=== PATIENT | female | born 1975 | race Caucasian/White ===

== ENCOUNTER 2017-01-17 14:31 | Emergency (ER) | payer MEDICARE ==
[~2017-01-17 14:31] MED LIST: XANAX1 MG PO
[2017-01-17 15:04] LABS: BASOPHILS 0.5 % (0.0-2.0); EOSINOPHILS 1.1 % (0-7); HEMATOCRIT 38.8 % (36.0-48.0); HEMOGLOBIN 12.9 g/dL (12-16); IMMATURE GRANULOCYTES 0.2 % (0-5); LYMPHOCYTES 37.6 % (15-50); MCH 31.9 pg (26.0-34.0); MCHC 33.2 g/dL (31.0-37.0); MONOCYTES 6.6 % (2-11); PLATELET COUNT 198 10x3/uL (130-400); RBC 4.04 10x6/uL (4.00-5.40); RDW 14.9 % (11.5-14.5); WBC 6.7 10x3/uL (4.8-10.8)
[2017-01-17 15:18] LABS: ALBUMIN 3.9 g/dL (3.4-5.0); ALKALINE PHOSPHATASE 124 U/L (46-116); ALT (SGPT) 18 U/L (10-68); AMYLASE - SERUM 39 U/L (25-115); CALC OSMOLALITY 280 mosm/kg (275-300); CALCIUM 9.2 mg/dL (8.5-10.1); CARBON DIOXIDE 24.3 mmol/L (21.0-32.0); CHLORIDE - SERUM 104 mmol/L (98-107); CREATININE - SERUM 0.8 mg/dL (0.6-1.3); GLUCOSE 90 mg/dL (74-106); LIPASE 120 U/L (73-393); POTASSIUM - SERUM 3.8 mmol/L (3.5-5.1); PROTEIN - SERUM 7.5 g/dL (6.4-8.2); SODIUM 140 mmol/L (136-145); UREA NITROGEN 17 mg/dL (7-18); eGFR NON AFRICAN AMERICAN 83 mL/min (90-120)
[2017-01-17 16:09] LABS: APPEARANCE HAZY (CLEAR); BILIRUBIN NEGATIVE (NEGATIVE); COLOR YELLOW (YELLOW); GLUCOSE NEGATIVE (NEGATIVE); KETONE NEGATIVE (NEGATIVE); LEUKOCYTE ESTERASE TRACE (NEGATIVE); NITRITE NEGATIVE (NEGATIVE); PROTEIN NEGATIVE (NEGATIVE); UROBILINOGEN NORMAL (NORMAL)
[2017-01-17 16:10] LABS: BACTERIA FEW /hpf (NONE SEEN); EPITHELIAL CELLS 0-5 /hpf (0-5); MUCUS <1+ /lpf (NONE SEEN); RED CELLS - URINE 0-5 /hpf (0-5); WHITE CELLS - URINE 0-5 /hpf (0-5)
[2017-01-17 16:14] LABS: HCG URINE NEGATIVE (NEGATIVE)
== END 2017-01-17 17:11 | disposition home or self-care (01) ==
LOC: D.ER 14:31
PROVIDERS: Emergency Medicine
DX: G89.29 Other chronic pain (principal); S90.02XA Contusion of left ankle, initial encounter; W19.XXXA Unspecified fall, initial encounter; Y93.89 Activity, other specified; Y92.018 Other place in single-family (private) house as the place of occurrence of the external cause; F31.9 Bipolar disorder, unspecified; M51.36 Other intervertebral disc degeneration, lumbar region; F43.10 Post-traumatic stress disorder, unspecified; F17.200 Nicotine dependence, unspecified, uncomplicated

== ENCOUNTER 2017-05-08 17:49 | Emergency (ER) | payer MEDICARE | END 2017-05-08 20:05 | disposition home or self-care (01) | LOC: D.ER 17:49 | DX: S39.013A Strain of muscle, fascia and tendon of pelvis, initial encounter (principal); X58.XXXA Exposure to other specified factors, initial encounter; M51.36 Other intervertebral disc degeneration, lumbar region ==

== ENCOUNTER 2017-08-11 19:40 | Emergency (ER) | payer MEDICARE | END 2017-08-11 21:54 | disposition home or self-care (01) | LOC: D.ER 19:40 | DX: S20.219A Contusion of unspecified front wall of thorax, initial encounter (principal); S40.011A Contusion of right shoulder, initial encounter; S30.0XXA Contusion of lower back and pelvis, initial encounter; W01.0XXA Fall on same level from slipping, tripping and stumbling without subsequent striking against object, initial encounter; Y93.89 Activity, other specified; Y92.019 Unspecified place in single-family (private) house as the place of occurrence of the external cause ==

== ENCOUNTER 2017-09-15 23:00 | Emergency (ER) | payer MEDICARE ==
[2017-09-16 00:28] LABS: BASOPHILS 0.2 % (0-2); EOSINOPHILS 1.5 % (0-7); HEMATOCRIT 33.8 % (36.0-48.0); HEMOGLOBIN 11.2 g/dL (12-16); IMMATURE GRANULOCYTES 0.2 % (0-5); LYMPHOCYTES 29.2 % (15-50); MCH 32.2 pg (26.0-34.0); MCHC 33.1 g/dL (31.0-37.0); MCV 97.1 fL (80.0-100.0); MEAN PLATELET VOLUME 9.7 fL (7.4-10.4); MONOCYTES 5.4 % (2-11); NEUTROPHILS 63.5 % (40-80); PLATELET COUNT 220 10x3/uL (130-400); RBC 3.48 10x6/uL (4.00-5.40); RDW 13.2 % (11.5-14.5); WBC 10.3 10x3/uL (4.8-10.8)
[2017-09-16 00:38] LABS: INR 0.93 (0.85-1.17); PROTIME 12.3 SECONDS (11.6-15.0)
[2017-09-16 00:39] LABS: D-DIMER-QUANTITATIVE < 0.27 ug/mLFEU (0.20-0.54)
== END 2017-09-16 01:09 | disposition home or self-care (01) ==
LOC: D.ER 23:00
PROVIDERS: Emergency Medicine
DX: M54.5 Low back pain (principal); M25.551 Pain in right hip; M79.661 Pain in right lower leg; D64.9 Anemia, unspecified

== ENCOUNTER 2017-10-11 10:29 | Emergency (ER) | payer MEDICARE | END 2017-10-11 12:15 | disposition home or self-care (01) | LOC: D.ER 10:29 | DX: M54.5 Low back pain (principal); M62.838 Other muscle spasm; F17.200 Nicotine dependence, unspecified, uncomplicated ==

== ENCOUNTER 2017-11-05 17:44 | Emergency (ER) | payer MEDICARE | END 2017-11-05 20:50 | disposition home or self-care (01) | LOC: D.ER 17:44 | DX: M25.551 Pain in right hip (principal); F41.9 Anxiety disorder, unspecified; W01.0XXA Fall on same level from slipping, tripping and stumbling without subsequent striking against object, initial encounter; Y93.89 Activity, other specified; Y92.019 Unspecified place in single-family (private) house as the place of occurrence of the external cause ==

== ENCOUNTER 2017-11-20 15:00 | Emergency (ER) | payer MEDICARE | END 2017-11-20 15:55 | disposition home or self-care (01) | LOC: D.ER 15:00 | DX: S32.9XXA Fracture of unspecified parts of lumbosacral spine and pelvis, initial encounter for closed fracture (principal); S76.011A Strain of muscle, fascia and tendon of right hip, initial encounter; W19.XXXA Unspecified fall, initial encounter; Y93.89 Activity, other specified; Y92.019 Unspecified place in single-family (private) house as the place of occurrence of the external cause ==

== ENCOUNTER 2017-12-04 09:44 | Emergency (ER) | payer MEDICARE | END 2017-12-04 12:03 | disposition home or self-care (01) | LOC: D.ER 09:44 | DX: M25.551 Pain in right hip (principal); F17.200 Nicotine dependence, unspecified, uncomplicated ==

== ENCOUNTER 2018-02-01 11:47 | Emergency (ER) | payer MEDICARE, MEDICAID | END 2018-02-01 14:25 | disposition home or self-care (01) | LOC: D.ER 11:47 | DX: S20.212A Contusion of left front wall of thorax, initial encounter (principal); Y04.2XXA Assault by strike against or bumped into by another person, initial encounter; Y93.89 Activity, other specified; Y92.89 Other specified places as the place of occurrence of the external cause; R07.81 Pleurodynia ==

== ENCOUNTER 2018-02-11 12:13 | Emergency (ER) | payer MEDICARE, MEDICAID | END 2018-02-11 16:00 | disposition home or self-care (01) | LOC: D.ER 12:13 | DX: R07.81 Pleurodynia (principal); F41.9 Anxiety disorder, unspecified; Y04.2XXA Assault by strike against or bumped into by another person, initial encounter; Y93.89 Activity, other specified; Y92.89 Other specified places as the place of occurrence of the external cause ==

== ENCOUNTER 2018-05-14 21:42 | Emergency (ER) | payer MEDICARE, MEDICAID ==
[~2018-05-14] VITALS: Ht 160 cm; Wt 75.0 kg
[2018-05-14 21:47] VITALS: Ht 160 cm; Wt 75.0 kg
[2018-05-14] MEDS ORDERED: MEDROL DOSE PACK4 MG PO (22:24)
[2018-05-14] MEDS ORDERED: ROBAXIN-750750 MG PO (22:24)
[2018-05-14 23:15] VITALS: BP 111/67
== END 2018-05-14 23:16 | disposition home or self-care (01) ==
LOC: D.ER 21:42
DX: S70.01XA Contusion of right hip, initial encounter (principal); W11.XXXA Fall on and from ladder, initial encounter; Y93.89 Activity, other specified; Y92.019 Unspecified place in single-family (private) house as the place of occurrence of the external cause; M25.531 Pain in right wrist

== ENCOUNTER 2018-06-11 08:16 | Emergency (ER) | payer MEDICARE, MEDICAID ==
[~2018-06-11] VITALS: Ht 154.9 cm; Wt 72.7 kg
[~2018-06-11 08:16] MED LIST changes: +MEDROL DOSE PACK4 MG PO; +ROBAXIN-750750 MG PO
[2018-06-11 08:22] VITALS: Ht 154.9 cm; Wt 72.7 kg
[2018-06-11 09:39] LABS: BASOPHILS 0.5 % (0-2); HEMATOCRIT 42.5 % (36.0-48.0); HEMOGLOBIN 14.4 g/dL (12-16); IMMATURE GRANULOCYTES 0.3 % (0-5); MCH 32.3 pg (26.0-34.0); MCHC 33.9 g/dL (31.0-37.0); MCV 95.3 fL (80.0-100.0); MEAN PLATELET VOLUME 9.7 fL (7.4-10.4); MONOCYTES 6.4 % (2-11); NEUTROPHILS 68.8 % (40-80); PLATELET COUNT 278 10x3/uL (130-400); RBC 4.46 10x6/uL (4.00-5.40); RDW 13.5 % (11.5-14.5); WBC 6.6 10x3/uL (4.8-10.8)
[2018-06-11 09:41] LABS: ALBUMIN 3.9 g/dL (3.4-5.0); ALKALINE PHOSPHATASE 108 U/L (46-116); ALT (SGPT) 23 U/L (10-68); BILIRUBIN - TOTAL 0.46 mg/dL (0.2-1.3); CALC OSMOLALITY 282 mosm/kg (275-300); CALCIUM 9.2 mg/dL (8.5-10.1); CARBON DIOXIDE 23.3 mmol/L (21.0-32.0); CHLORIDE - SERUM 105 mmol/L (98-107); CREATININE - SERUM 0.7 mg/dL (0.6-1.3); GLUCOSE 94 mg/dL (74-106); SODIUM 141 mmol/L (136-145); UREA NITROGEN 17 mg/dL (7-18); eGFR NON AFRICAN AMERICAN > 90 mL/min (90-120)
[2018-06-11] MEDS ORDERED: IBUPROFEN800 MG PO (10:57)
[2018-06-11] MEDS ORDERED: ZOFRAN4 MG PO (10:57)
[2018-06-11 11:25] VITALS: BP 118/72
== END 2018-06-11 11:25 | disposition home or self-care (01) ==
LOC: D.ER 08:16
PROVIDERS: Emergency Medicine
DX: F41.9 Anxiety disorder, unspecified (principal); F43.12 Post-traumatic stress disorder, chronic; X58.XXXA Exposure to other specified factors, initial encounter; Y93.9 Activity, unspecified; Y92.9 Unspecified place or not applicable; S09.90XA Unspecified injury of head, initial encounter; Y93.89 Activity, other specified; Y92.019 Unspecified place in single-family (private) house as the place of occurrence of the external cause; F32.9 Major depressive disorder, single episode, unspecified

== ENCOUNTER 2018-10-21 11:18 | Emergency (ER) | payer MEDICARE, MEDICAID ==
[~2018-10-21] VITALS: Ht 154.9 cm; Wt 72.7 kg
[~2018-10-21 11:18] MED LIST changes: +IBUPROFEN800 MG PO; +ZOFRAN4 MG PO
[2018-10-21 11:25] VITALS: Ht 154.9 cm; Wt 72.7 kg
[2018-10-21 11:46] LABS: BASOPHILS 0.3 % (0-2); EOSINOPHILS 1.3 % (0-7); HEMATOCRIT 39.8 % (36.0-48.0); HEMOGLOBIN 13.4 g/dL (12-16); IMMATURE GRANULOCYTES 0.1 % (0-5); LYMPHOCYTES 37.9 % (15-50); MCHC 33.7 g/dL (31.0-37.0); MEAN PLATELET VOLUME 9.3 fL (7.4-10.4); MONOCYTES 5.7 % (2-11); NEUTROPHILS 54.7 % (40-80); PLATELET COUNT 237 10x3/uL (130-400); RBC 4.19 10x6/uL (4.00-5.40); RDW 13.5 % (11.5-14.5); WBC 6.9 10x3/uL (4.8-10.8)
[2018-10-21] MEDS ORDERED: XANAX1 MG PO (12:03)
[2018-10-21 12:04] LABS: ALBUMIN 3.7 g/dL (3.4-5.0); ALKALINE PHOSPHATASE 77 U/L (46-116); ALT (SGPT) 28 U/L (10-68); BILIRUBIN - TOTAL 0.38 mg/dL (0.2-1.3); CALC OSMOLALITY 278 mosm/kg (275-300); CALCIUM 9.6 mg/dL (8.5-10.1); CARBON DIOXIDE 26.4 mmol/L (21.0-32.0); CHLORIDE - SERUM 104 mmol/L (98-107); CREATININE - SERUM 0.7 mg/dL (0.6-1.3); GLUCOSE 99 mg/dL (74-106); POTASSIUM - SERUM 3.6 mmol/L (3.5-5.1); PROTEIN - SERUM 7.4 g/dL (6.4-8.2); SODIUM 140 mmol/L (136-145); UREA NITROGEN 13 mg/dL (7-18); eGFR NON AFRICAN AMERICAN > 90 mL/min (90-120)
[2018-10-21 13:13] VITALS: BP 132/088
== END 2018-10-21 13:16 | disposition home or self-care (01) ==
LOC: D.ER 11:18
PROVIDERS: Emergency Medicine
DX: F41.9 Anxiety disorder, unspecified (principal); F32.9 Major depressive disorder, single episode, unspecified; F17.200 Nicotine dependence, unspecified, uncomplicated

== ENCOUNTER → 2019-01-01 13:29 | Outpatient (CLI) | payer MEDICARE ==
[2018-10-21 11:25] VITALS: BMI 30.3
[~2019-01-01 13:29] MED LIST changes: +MACROBID100 MG PO; +PHENERGAN25 M1 PO; +PROVENTIL/2.5 MG/3 M INH; +RITALIN10 MG PO; +TORADOL10 MG PO; +VALIUM10 MG PO
[2019-01-01 14:01] LABS: BASOPHILS 0.1 % (0-2); EOSINOPHILS 0.4 % (0-7); HEMATOCRIT 42.7 % (36.0-48.0); HEMOGLOBIN 14.4 g/dL (12-16); IMMATURE GRANULOCYTES 0.7 % (0-5); LYMPHOCYTES 24.2 % (15-50); MCH 32.7 pg (26.0-34.0); MCHC 33.7 g/dL (31.0-37.0); MEAN PLATELET VOLUME 9.4 fL (7.4-10.4); MONOCYTES 4.1 % (2-11); NEUTROPHILS 70.5 % (40-80); PLATELET COUNT 234 10x3/uL (130-400); RDW 14.1 % (11.5-14.5); WBC 7.5 10x3/uL (4.8-10.8)
[2019-01-01 15:05] LABS: ERYTHROCYTE SEDIMENTATION RATE 20 mm/hr (0-20)
== END | disposition home or self-care (01) ==
LOC: D.LAB 12-26 09:15
PROVIDERS: Internal Medicine Gastroenterology
DX: R10.9 Unspecified abdominal pain (principal)

== ENCOUNTER 2019-01-08 17:35 | Emergency (ER) | payer MEDICARE ==
[~2019-01-08] VITALS: Ht 154.9 cm; Wt 63.6 kg
[~2019-01-08 17:35] MED LIST changes: -MACROBID100 MG PO; -PHENERGAN25 M1 PO; -PROVENTIL/2.5 MG/3 M INH; -RITALIN10 MG PO; -TORADOL10 MG PO; -VALIUM10 MG PO
[2019-01-08 17:37] VITALS: Ht 154.9 cm; Wt 63.6 kg
[2019-01-08] MEDS ORDERED: RITALIN10 MG PO (17:39)
[2019-01-08] MEDS ORDERED: VALIUM10 MG PO (17:39)
[2019-01-08] MEDS ORDERED: PROVENTIL/2.5 MG/3 M INH (17:40)
[2019-01-08 18:31] LABS: BASOPHILS 0.2 % (0-2); HEMATOCRIT 38.7 % (36.0-48.0); IMMATURE GRANULOCYTES 0.2 % (0-5); LYMPHOCYTES 32.3 % (15-50); MCH 32.3 pg (26.0-34.0); MCHC 33.6 g/dL (31.0-37.0); MEAN PLATELET VOLUME 9.7 fL (7.4-10.4); MONOCYTES 4.9 % (2-11); NEUTROPHILS 61.4 % (40-80); RBC 4.03 10x6/uL (4.00-5.40); RDW 13.6 % (11.5-14.5); WBC 6.2 10x3/uL (4.8-10.8)
[2019-01-08 18:41] LABS: HCG SERUM NEGATIVE (NEGATIVE)
[2019-01-08 18:46] LABS: ALBUMIN 3.7 g/dL (3.4-5.0); ALKALINE PHOSPHATASE 88 U/L (46-116); ALT (SGPT) 18 U/L (10-68); CALC OSMOLALITY 286 mosm/kg (275-300); CALCIUM 8.4 mg/dL (8.5-10.1); CARBON DIOXIDE 21.5 mmol/L (21.0-32.0); CHLORIDE - SERUM 109 mmol/L (98-107); CREATININE - SERUM 0.7 mg/dL (0.6-1.3); GLUCOSE 91 mg/dL (74-106); POTASSIUM - SERUM 3.5 mmol/L (3.5-5.1); SODIUM 143 mmol/L (136-145); UREA NITROGEN 19 mg/dL (7-18); eGFR NON AFRICAN AMERICAN > 90 mL/min (90-120)
[2019-01-08 18:50] LABS: AMYLASE - SERUM 44 U/L (25-115); LIPASE 168 U/L (73-393); TROPONIN-I 0.027 ng/mL (0.000-0.060)
[2019-01-08 18:51] LABS: PLATELET COUNT 185 10x3/uL (130-400)
[2019-01-08 19:26] LABS: APPEARANCE CLEAR (CLEAR); BILIRUBIN NEGATIVE (NEGATIVE); COLOR YELLOW (YELLOW); EPITHELIAL CELLS 0-5 /hpf (0-5); GLUCOSE NEGATIVE (NEGATIVE); KETONE NEGATIVE (NEGATIVE); NITRITE NEGATIVE (NEGATIVE); PROTEIN 2+ mg/dL (NEGATIVE); RED CELLS - URINE >50 /hpf (0-5); UROBILINOGEN NORMAL (NORMAL)
[2019-01-08] MEDS ORDERED: TORADOL10 MG PO (19:55)
[2019-01-08] MEDS ORDERED: PHENERGAN25 M1 PO (19:55)
[2019-01-08] MEDS ORDERED: MACROBID100 MG PO (19:55)
[2019-01-08 20:16] VITALS: BP 114/83
== END 2019-01-08 20:17 | disposition home or self-care (01) ==
LOC: D.ER 17:35
PROVIDERS: Family Medicine
DX: R10.31 Right lower quadrant pain (principal); R31.9 Hematuria, unspecified; N39.0 Urinary tract infection, site not specified

== ENCOUNTER 2019-02-10 08:58 | Emergency (ER) | payer MEDICARE ==
[~2019-02-10] VITALS: Ht 154.9 cm; Wt 72.7 kg
[~2019-02-10 08:58] MED LIST changes: +MACROBID100 MG PO; +PHENERGAN25 M1 PO; +PROVENTIL/2.5 MG/3 M INH; +RITALIN10 MG PO; +TORADOL10 MG PO; +VALIUM10 MG PO
[2019-02-10 09:01] VITALS: Ht 154.9 cm; Wt 72.7 kg
[2019-02-10 09:39] LABS: BASOPHILS 0.1 % (0-2); EOSINOPHILS 0.4 % (0-7); HEMATOCRIT 44.3 % (36.0-48.0); HEMOGLOBIN 14.9 g/dL (12-16); IMMATURE GRANULOCYTES 0.6 % (0-5); LYMPHOCYTES 12.3 % (15-50); MCHC 33.6 g/dL (31.0-37.0); MEAN PLATELET VOLUME 9.8 fL (7.4-10.4); MONOCYTES 3.1 % (2-11); NEUTROPHILS 83.5 % (40-80); RBC 4.52 10x6/uL (4.00-5.40); RDW 13.2 % (11.5-14.5)
[2019-02-10 09:40] LABS: PLATELET COUNT 272 10x3/uL (130-400)
[2019-02-10 09:46] LABS: APPEARANCE CLOUDY (CLEAR); BACTERIA FEW /hpf (NONE SEEN); BILIRUBIN NEGATIVE (NEGATIVE); COLOR YELLOW (YELLOW); GLUCOSE NEGATIVE (NEGATIVE); KETONE NEGATIVE (NEGATIVE); NITRITE NEGATIVE (NEGATIVE); PROTEIN TRACE mg/dL (NEGATIVE); RED CELLS - URINE >50 /hpf (0-5); UROBILINOGEN NORMAL (NORMAL)
[2019-02-10 09:55] LABS: ALBUMIN 4.2 g/dL (3.4-5.0); ALKALINE PHOSPHATASE 99 U/L (46-116); ALT (SGPT) 28 U/L (10-68); BILIRUBIN - TOTAL 0.21 mg/dL (0.2-1.3); CALC OSMOLALITY 280 mosm/kg (275-300); CALCIUM 9.5 mg/dL (8.5-10.1); CARBON DIOXIDE 26.1 mmol/L (21.0-32.0); CHLORIDE - SERUM 105 mmol/L (98-107); CREATININE - SERUM 0.7 mg/dL (0.6-1.3); GLUCOSE 101 mg/dL (74-106); POTASSIUM - SERUM 3.9 mmol/L (3.5-5.1); PROTEIN - SERUM 8.4 g/dL (6.4-8.2); SODIUM 141 mmol/L (136-145); UREA NITROGEN 13 mg/dL (7-18); eGFR NON AFRICAN AMERICAN > 90 mL/min (90-120)
[2019-02-10 11:07] LABS: AMYLASE - SERUM 63 U/L (25-115); LIPASE 196 U/L (73-393)
[2019-02-10 11:17] LABS: TROPONIN-I < 0.017 ng/mL (0.000-0.060)
[2019-02-10] MEDS ORDERED: ZOFRAN ODT4 MG/UDTAB PO (11:27)
[2019-02-10] MEDS ORDERED: BENTYL 20 MG TA20 MG PO (11:27)
[2019-02-10] MEDS ORDERED: ATARAX 25 MG TA25 MG PO (11:27)
[2019-02-10] MEDS ORDERED: TALWIN NX1 TAB PO (11:27)
[2019-02-10 12:02] VITALS: BP 128/72
== END 2019-02-10 12:03 | disposition home or self-care (01) ==
LOC: D.ER 08:58
PROVIDERS: Emergency Medicine
DX: F41.9 Anxiety disorder, unspecified (principal); R10.30 Lower abdominal pain, unspecified; R11.0 Nausea; N39.0 Urinary tract infection, site not specified

== ENCOUNTER → 2019-04-17 13:20 | Outpatient (CLI) | payer MEDICARE, MEDICAID ==
[2019-02-10 09:01] VITALS: BMI 30.3
[~2019-04-17 13:20] MED LIST changes: +ATARAX 25 MG TA25 MG PO; +BENTYL 20 MG TA20 MG PO; +TALWIN NX1 TAB PO; +ZOFRAN ODT4 MG/UDTAB PO
== END | disposition home or self-care (01) ==
LOC: D.CT 13:20
PROVIDERS: ATTEND Family Medicine
DX: I65.09 Occlusion and stenosis of unspecified vertebral artery (principal)

== ENCOUNTER 2019-09-09 18:46 | Emergency (ER) | payer MEDICARE, MEDICAID ==
[~2019-09-09] VITALS: Ht 154.9 cm; Wt 68.2 kg
[2019-09-09 18:52] VITALS: Ht 154.9 cm; Wt 68.2 kg
[2019-09-09] MEDS ORDERED: EFFEXOR100 MG PO (18:55)
[2019-09-09] MEDS ORDERED: STRATTERA100 MG PO (18:55)
[2019-09-09 19:20] LABS: BASOPHILS 0.1 % (0-2); HEMATOCRIT 42.6 % (36.0-48.0); HEMOGLOBIN 14.5 g/dL (12-16); IMMATURE GRANULOCYTES 0.4 % (0-5); LYMPHOCYTES 32.2 % (15-50); MCH 33.1 pg (26.0-34.0); MCV 97.3 fL (80.0-100.0); MEAN PLATELET VOLUME 9.1 fL (7.4-10.4); MONOCYTES 6.5 % (2-11); NEUTROPHILS 59.8 % (40-80); PLATELET COUNT 272 10x3/uL (130-400); RBC 4.38 10x6/uL (4.00-5.40); RDW 13.5 % (11.5-14.5); WBC 8.1 10x3/uL (4.8-10.8)
[2019-09-09 19:34] LABS: ALBUMIN 4.1 g/dL (3.4-5.0); ALKALINE PHOSPHATASE 117 U/L (46-116); ALT (SGPT) 25 U/L (10-68); BILIRUBIN - TOTAL 0.33 mg/dL (0.2-1.3); CALC OSMOLALITY 277 mosm/kg (275-300); CALCIUM 9.5 mg/dL (8.5-10.1); CARBON DIOXIDE 27.7 mmol/L (21.0-32.0); CHLORIDE - SERUM 102 mmol/L (98-107); CREATININE - SERUM 0.7 mg/dL (0.6-1.3); GLUCOSE 105 mg/dL (74-106); POTASSIUM - SERUM 3.8 mmol/L (3.5-5.1); PROTEIN - SERUM 8.2 g/dL (6.4-8.2); SODIUM 139 mmol/L (136-145); UREA NITROGEN 13 mg/dL (7-18); eGFR NON AFRICAN AMERICAN > 90 mL/min (90-120)
[2019-09-09 19:58] LABS: CKMB 2.4 U/L (0.0-3.6); CREATINE KINASE 101 UL (21-215)
[2019-09-09 20:11] LABS: TROPONIN-I < 0.017 ng/mL (0.000-0.060)
[2019-09-09] MEDS ORDERED: TORADOL10 MG PO (20:24)
[2019-09-09 20:50] VITALS: BP 131/85
[2019-09-10] MEDS ORDERED: BAYER CHEWABLE81 MG PO (10:22)
== END 2019-09-09 20:50 | disposition home or self-care (01) ==
LOC: D.ER 18:46
PROVIDERS: Family Medicine
DX: R07.9 Chest pain, unspecified (principal)

== ENCOUNTER → 2019-09-10 09:50 | Outpatient (CLI) | payer MEDICARE, MEDICAID ==
[2019-09-09 18:52] VITALS: BMI 28.4
[~2019-09-10 09:50] MED LIST changes: +BAYER CHEWABLE81 MG PO; +EFFEXOR100 MG PO; +STRATTERA100 MG PO
== END | disposition home or self-care (01) ==
LOC: D.HCCARDIO 09:50
PROVIDERS: ATTEND Internal Medicine Interventional Cardiology
DX: I20.9 Angina pectoris, unspecified (principal)

== ENCOUNTER 2019-09-10 10:16 | Outpatient (CLI) | payer MEDICARE, MEDICAID ==
[~2019-09-10] VITALS: Ht 154.9 cm; Wt 68.2 kg
--- NOTE | ~2019-09-10 | HEMODYNAMI ---
PATIENT:LOLA HASSAN MEDICAL RECORD: [id number] : 71 LOCATION:DFRAN ADMISSION DATE: 09/10/19 Generatedon:09/10/201912:19 Patient name: LOLA HASSAN Patient #: [id number] : 1975 Date of study: 09/10/2019 Page: Of Hemodynamic Procedure Report Patient Data Patient Demographics Procedure consent was obtained First Name: LOLA Gender: Female Last Name: SONYA : 1975 [facility] Initial: BRUNILDA Age: 43 year(s) Patient #: [id number] Race: Unknown SSN: [id number] Additional ID: [id number] Contact details Address: [address] [place] [address] State: [place] City: [place] Zip code: [address] Past Medical History Allergies Allergen Reaction Date Comments Reported Other 09/21/2016 Compazine, Haldol, Toradol, allergy Ultram, Zanaflex, Robaxin, Steroids, Flexeril, Imitrex Other 09/10/2019 haldol,compazine,zanaflex,ultram allergy Admission Admission Data Admission Date: 09/10/2019 Admission Time: 10:16 Height (in.): 60.63 BSA: 1.66 (m2) Height (cm.): 154 BMI: 28.67 (kg/m2) Weight (lbs.): 149.92 Weight (kg.): 68 Lab Results Lab Result Date: 09/10/2019 Lab Result Time: 0:00 Biochemistry Name Units Result Min Max BUN mg/dl 13 --(--*-)-- 7 18 CK-MB ng/ml 2.4 --(--*-)-- 0 3.6 Creatinine mg/dl 0.7 --(*---)-- 0.6 1.3 CBC Name Units Result Min Max Hemoglobin g/dl 14.5 --(*---)-- 13.5 17.5 Procedure Procedure Types Cath Procedure Diagnostic Procedure [facility] w/Coronaries Procedure Description Procedure Date Procedure Date: 09/10/2019 Procedure Start Time: 12:07 Procedure End Time: 12:14 Procedure Staff Name Function Adama Harris MD Performing Physician Lorrie Ca RT Monitor Emma Carrington RN Nurse Kelsi Benitez RT Scrub Shivani Smith RN Men'S Garment Fitter Procedure Data Cath Procedure Fluoroscopy Diagnostic fluoroscopy Total fluoroscopy Time: 0.9 time: 0.9 min min Diagnostic fluoroscopy Total fluoroscopy dose: 251 dose: 251 mGy mGy Contrast Material Contrast Material Type Amount (ml) Isovue 300 47 Entry Location Entry Primary Successful Side Size Upsize Upsize Entry Closure Succes sful Closure Location (Fr) 1 (Fr) 2 (Fr) Remarks Device Remarks Femoral Right 5 Fr Exoseal artery Estimated blood loss: 10 ml Diagnostic catheters Device Type Used For End Catheter Placement MULTIPACK Pigtail 5 Fr Procedure catheter MULTIPACK JL 4.0 5Fr Procedure catheter MULTIPACK 3DRC 5Fr Procedure catheter Procedure Complications No complications Procedure Medications Medication Administration Route Dosage Oxygen etCO2 Nasal cannula 2 l/min Lidocaine 2% added to field 20 Heparin Flush Bag added to field 2 bags (1000units/500ml NS) 0.9% NaCl I.V. 100 ml/hr Versed I.V. 2 mg Fentanyl I.V. 100 mcg Versed I.V. 2 mg Fentanyl I.V. 100 mcg Versed I.V. 2 mg Hemodynamics Rest BSA: 1.66 (m2) HGB: 14.5 (g/dl) O2 Consumption: Estimated: 225.76 (ml/min) O2 Co nsumption indexed: Estimated:136 (ml/min/m) Pre Cath Intra NCS Post Cath Vital Signs Time Heart Resp SPO2 etCO2 NIBP (mmHg) Rhythm Pain Status Sedation Rate (ipm) (%) (mmHg) Level (bpm) 12:00:45 69 18 99 0 147/83(111) NSR 5 (11) , 10(A) Very distressing 12:04:57 71 23 100 36.9 130/78(105) NSR 5 (11) , 10(A) Very distressing 12:09:09 72 18 100 33.8 125/78(101) NSR 5 (11) , 10(A) Very distressing 12:13:19 81 22 100 40.6 119/74(95) NSR 5 (11) , 10(A) Very distressing 12:15:48 82 12 99 42.9 123/74(98) NSR 5 (11) , 10(A) Very distressing Medications Time Medication Route Dose Verified Delivered Reason Notes Eff ectiveness by by 11:58:35 Oxygen etCO2 2 Adama Buffie used for Nasal l/min Steven Smith RN procedure cannula 11:59:12 Lidocaine 2% added 20ml Adama Adama for local to vial Steven Harris MD anesthetic field 11:59:18 Heparin Flush added 2 Adama Adama used for Bag to bags Steven Harris MD procedure (1000units/500ml field NS) 11:59:33 0.9% NaCl I.V. 100 Adama Buffie Per ml/hr Steven Smith RN physician 12:04:08 Fentanyl I.V. 100 Adama Buffie for mcg Steven Smith RN sedation 12:04:51 Versed I.V. 2 mg Adama Buffie for Steven Smith RN sedation 12:07:19 Versed I.V. 2 mg Adama Buffie for Steven Smith RN sedation 12:07:26 Fentanyl I.V. 100 Adama Buffie for mcg Steven Smith RN sedation 12:11:25 Versed I.V. 2 mg Adama Buffie for Steven Smith RN sedation Procedure Log Time Note 11:38:06 Lab Result : Creatinine 0.7 mg/dl 11:38:06 Lab Result : BUN 13 mg/dl 11:38:06 Lab Result : Hemoglobin 14.5 g/dl 11:38:06 Lab Result : CK-MB 2.4 ng/ml 11:38:42 Diagnostic Cath Status : Urgent 11:38:57 Procedure Status Urgent Heart Cath (IP). 11:39:00 Emma Carrington RN sent for patient. Start room use. 11:39:01 Time tracking: Regular hours (M-F 7:00 - 5:00) 11:39:08 Plan of Care:Hemodynamics will remain stable., Cardiac rhythm will remain stable., Comfort level will be maintained., Respiratory function will remain adequate., Patient/ family verbilizes understanding of procedure., Procedure tolerated without complication., Recovers from procedure without complications.. 11:39:15 Patient received from ED to CCL 2 Alert and oriented. Johnsferred to table in Supine position. 11:39:36 Signed procedure consent form obtained from patient. 11:39:37 Warm blankets applied, and billy hugger turned on for patient comfort. 11:39:38 Correct patient and procedure confirmed by team. 11:39:47 H&P Date Dictated: 09/10/2019 Emergent; H&P N/A, Within 30 days and on chart.. 11:39:48 Pre-procedure instructions explained to patient. 11:39:50 Pre-op teaching completed and patient verbalized understanding. 11:39:54 Family unavailable. 11:39:57 Patient NPO since Midnight. 11:41:00 Patient allergic to Other allergyhaldol,compazine,zanaflex,ultram 11:41:17 Is the patient allergic to Iodine/contrast media? No. 11:41:18 Was the patient premedicated? Yes 11:41:25 Is patient on blood thinner?Yes 11:41:28 ACC The patient was administered the following blood thiners within the last 24 hours: ACCAspirin 11:47:48 Patient Height : 60.63 inches 11:47:52 Patient Weight : 149.92 lbs 11:48:02 If diabetic: On Metformin? No 11:58:35 Oxygen 2 l/min etCO2 Nasal cannula was administered by Shivani Smith RN; used for procedure; Verbal order read back and verified. 11:59:12 Lidocaine 2% 20ml vial added to field was administered by Adama Harris MD; for local anesthetic; Verbal order read back and verified. 11:59:18 Heparin Flush Bag (1000units/500ml NS) 2 bags added to field was administered by Adama Harris MD; used for procedure; Verbal order read back and verified. 11:59:33 0.9% NaCl 100 ml/hr I.V. was administered by Shivani Smith RN; Per physician; Verbal order read back and verified. 11:59:37 Vital chart was started 12:00:06 Snore? Yes 12:00:07 Sleep apnea? No 12:00:14 Airway obstruction? Yes COPD 12:00:21 Dentures? Yes uppers in thight 12:00:27 Pre procedure: right dorsailis pedis pulse 1+ Palpable, but thready & weak; easily obliterated 12:00:37 Patient pain scale 5/10 ?. 12:00:57 IV patent on arrival in right wrist with 0.9% NaCl at [facility]. 12:01:03 Lab results completed and on chart. 12:01:07 Risk of Mortality: .4 12:01:12 Risk of blood transfusion: 1.3 12:01:15 Risk of PHUC: 1.1 12:01:40 Right groin area was prepped with chlora-prep and draped in sterile fashion 12:01:41 Alarms reviewed by R. N. 12:01:42 Sharps counted by scrub and verified by R.N. 12:01:43 Physician paged 12:01:48 1) 90+ Normal kidney functon but urine findings or structural abnormalities or genetic trait point to kidney disease. 12:01:52 Maximum allowable contrast dose (3.7 X eGFR X 0.75)249 ml. 12:03:34 Physician arrived 12:03:35 --------ALL STOP TIME OUT------ 12:03:36 Final Timeout: patient, procedure, and site verified with staff and physician. All members of the team are in agreement. 12:03:37 Right groin site verified by team. 12:03:43 Fire Safety Assessment: A--An alcohol-based skin anteseptic being used preoperatively., C--Open oxygen or nitrous oxide is being used., D--An ESU, laser, or fiber-optic light is being used. 12:03:47 Physical assessment completed. ASA score P 3 - A patient with severe systemic disease as per Aadma Harris MD. 12:03:56 Sedation plan: IV Moderate Sedation Medication:Versed, Fentanyl 12:04:08 Fentanyl 100 mcg I.V. was administered by Shivani Smith RN; for sedation; Verbal order read back and verified. 12:04:51 Versed 2 mg I.V. was administered by Shivani Smith RN; for sedation; Verbal order read back and verified. 12:07:19 Versed 2 mg I.V. was administered by Shivani Smith RN; for sedation; Verbal order read back and verified. 12:07:23 Procedure started. 12:07:24 Full Disclosure recording started 12:07:25 Use device set Femoral Dx 12:07:26 Fentanyl 100 mcg I.V. was administered by Shivani Smith RN; for sedation; Verbal order read back and verified. 12:07:30 Local anesthetic to right femoral artery with Lidocaine 2% by Adama Harris MD.INITIAL ACCESS ONLY 12:07:39 A 5 Fr sheath was inserted into the Right Femoral artery 12:07:42 ACIST Syringe (15229) opened to sterile field. 12:07:42 Bag Decanter (2002S) opened to sterile field. 12:07:43 Medline Cath Pack ([id number]) opened to sterile field. 12:07:44 ACIST Hand Control (56967) opened to sterile field. 12:07:44 ACIST Manifold (51983) opened to sterile field. 12:07:45 DIAGNOSTIC Multipack 5Fr catheter set ([id number]) opened to sterile field. 12:07:45 Tegaderm 4 x 4 (1626W) opened to sterile field. 12:07:47 SHEATH 5FR Palmetto (IJX676) opened to sterile field. 12:07:48 EMERALD Guide Wire (669-874) opened to sterile field. 12:08:26 A MULTIPACK Pigtail 5 Fr catheter was advanced over the wire and used for Procedure. 12:08:33 LV gram done using BUTLER 12:08:48 EF : 55 % 12:09:05 Catheter removed. 12:09:13 A MULTIPACK JL 4.0 5Fr catheter was advanced over the wire and used for Procedure. 12:09:17 LCA angiography performed. 12:09:53 Catheter removed. 12:10:00 A MULTIPACK 3DRC 5Fr catheter was advanced over the wire and used for Procedure. 12:10:04 RCA angiography performed. 12:10:09 EXOSEAL 5Fr (EX500) opened to sterile field. 12:11:15 ACCDominant side:Right 12:11:20 Catheter removed. 12:11:25 Versed 2 mg I.V. was administered by Shivani Smith RN; for sedation; Verbal order read back and verified. 12:11:34 Sheath removed intact; hemostasis achieved with Exoseal to the Right Femoral artery. 12:11:38 Procedure ended.(Physican Out) 12:11:48 Fluoroscopy time 00.90 minutes. 12:12:00 Fluoroscopy dose: 251 mGy 12:12:00 Flurop Dose total: 251 12:12:05 Dose Area Product 65689 mGy/cm. 12:12:10 Contrast amount:Isovue 300 47ml. 12:12:12 Maximum allowable dose exceeded? No. 12:12:14 Sharps counted by scrub and verified by R.N. 12:12:15 Insertion/operative site no bleeding no hematoma. 12:12:19 Post right femoral artery:stable 12:12:23 Post-procedure physical assessment completed. ASA score P 2 - A patient with mild systemic disease as per Adama Harris MD. 12:12:26 Post procedure rhythm: unchanged. 12:12:29 Estimated blood loss: 10 ml 12:13:06 Post procedure instruction explained to patient.Patient verbalizes understanding. 12:13:17 Procedure and supply charges have been captured, reviewed, submitted and are correct. 12:13:34 Procedure Complication : No complications 12:13:37 Vital chart was stopped 12:13:43 [facility] Findings: mild to moderate CAD (<70%) 12:13:46 Operative report dictated upon procedure completion. 12:13:47 See physician's report for complete and final results. 12:13:55 Report given to Pre/Post Procedure Room. 12:14:00 Patient transfered to Pre/Post Procedure Room with Stretcher. 12:14:02 Procedure ended. 12:14:02 Full Disclosure recording stopped 12:14:09 End room use (Document Last) Device Usage Item Name Manufacture Quantity Catalog Hospital Part Current Minimal L ot# / Number Charge Number Stock Stock Serial# Code ACIST Acist 1 93710 498773 642987 724207 20 Syringe Medical (53205) Systems Inc Bag Microtek 1 240602 60313 813322 5 Decanter Medical Inc. () Medline Medline 1 [id number] 387347 44601 013349 5 Cath Pack ([id number]) ACIST Hand Acist 1 06932 718683 511189 302322 5 Control Medical (95792) Systems Inc ACIST Acist 1 00098 726820 852892 511142 5 Manifold Medical (96171) Systems Inc DIAGNOSTIC Cardinal 1 OK8231 880240 00145 209470 30 [facility] Xhale 5Fr catheter set (PI1739) Tegaderm 4 3M 1 1626W 171066 875611 388125 5 x 4 (1626W) SHEATH 5FR Terumo 1 AID876 501070 468564 815608 5 Palmetto (UWN647) EMERALD Cardinal 1 971-102 976869 240504 694250 5 Guide Wire Health (690-244) MULTIPACK Cardinal 1 254481 5 Pigtail 5 Health Fr catheter MULTIPACK Cardinal 1 013852 5 JL 4.0 5Fr Health catheter MULTIPACK Cardinal 1 117313 5 3DRC 5Fr Health catheter EXOSEAL 5Fr Cardinal 1 EX500 136234 384581 986510 10 (EX500) Health Signature Audit [place] Stage Time Signature Unsigned Intra-Procedure 09/10/2019 Lorrie Ca 12:17:32 PM RT(R) Intra-Procedure 09/10/2019 Adama Harris 12:18:11 PM Intra-Procedure 09/10/2019 Shivani Smith RN 12:18:56 PM Intra-Procedure 09/10/2019 Adama Harris 12:19:31 PM Signatures Performing Physician : Signature : Adama Harris MD Date : Time : Monitor : Lorrie Ca Signature : RT Date : Time : Nurse : Emma Carrington RN Signature : Date : Time : [facility] [address] [place] [address]
[~2019-09-10 10:16] MED LIST changes: -BAYER CHEWABLE81 MG PO
[2019-09-10] MEDS ORDERED: BAYER CHEWABLE81 MG PO (10:22)
[2019-09-10 11:14] VITALS: Ht 154.9 cm; Wt 68.2 kg
[2019-09-10 11:42] LABS: BASOPHILS 0.2 % (0-2); EOSINOPHILS 0.9 % (0-7); HEMATOCRIT 48.6 % (36.0-48.0); HEMOGLOBIN 16.6 g/dL (12-16); IMMATURE GRANULOCYTES 0.5 % (0-5); LYMPHOCYTES 20.8 % (15-50); MCH 33.8 pg (26.0-34.0); MCHC 34.2 g/dL (31.0-37.0); MEAN PLATELET VOLUME 9.5 fL (7.4-10.4); MONOCYTES 5.6 % (2-11); PLATELET COUNT 271 10x3/uL (130-400); RBC 4.91 10x6/uL (4.00-5.40); RDW 13.6 % (11.5-14.5)
[2019-09-10 11:44] LABS: WBC 11.1 10x3/uL (4.8-10.8)
[2019-09-10 11:50] VITALS: BP 172/85
[2019-09-10 11:52] LABS: APTT 25.4 SECONDS (22.8-39.4); INR 0.88 (0.85-1.17); PROTIME 11.5 SECONDS (11.6-15.0)
--- NOTE | 2019-09-10 12:12 | CN ---
PATIENT NAME:LOLA HASSAN MEDICAL RECORD: [id number] : 71 LOCATION:D.CAT ADMIT DATE: ACCOUNT: [id number] CONSULTING PHYSICIAN: MARCIN HONEYCUTT MD REFERRING PHYSICIAN: MARCIN HONEYCUTT MD DATE OF CONSULTATION: 09/10/2019 DIAGNOSES: 1. Unstable angina. 2. Coronary artery disease. 3. Hypertension. 4. Hyperlipidemia. 5. Smoking. 6. Family history of coronary artery disease. HISTORY OF PRESENT ILLNESS: Mrs. Hassan has been having increasing chest pain. The chest pain is atypical, heavy pressure sensation across the anterior chest. Initially, it was coming on with exertion. She exercises on her treadmill every day. She cannot even go 1 minute without having crushing chest pain at this time. Today, she was set for a nuclear stress test upstairs and began having severe chest pain at rest. She continues to have chest pain at a level 5/10 at rest. Her EKG is unremarkable. Her chest pain is a typical anginal pain with a heaviness, pressure-like sensation in the anterior chest. She has received sublingual nitro, it has helped, but it is not abated. She has a history of a cardiac catheterization a number of years ago. At that time, she was told she had some coronary disease, but not enough for intervention. She has been on aspirin, COPD medications and Norvasc was started prior to the stress test. She is not sure of the dose. PHYSICAL EXAMINATION: CONSTITUTIONAL/GENERAL APPEARANCE: Well nourished, well developed, appears stated age. Level of distress, comfortable. EYES: Lids and conjunctivae noninjected. No discharge. No pallor. ENT: Lips within normal limit. No cyanosis. No pallor. NECK: Carotid arteries, bilateral normal upstroke. No bruits. No thrills. No jugular venous pressure or distention. CERVICAL LYMPH NODES: Nontender. Nonenlarged. THYROID: Not enlarged. No nodules. CARDIOVASCULAR: Precordial exam, nondisplaced. No heaves or pericardial thrills. Rate and rhythm, regular. Heart sounds, normal S1, normal S2. No S3, no gallop, no rub. Systolic murmur, not heard. Diastolic murmur, not heard. RESPIRATORY: Respiratory effort, unlabored. Normal curvature. No thoracic deformity. No chest wall tenderness. Percussion, resonant. Auscultation, clear. No wheezes, no rales, no rhonchi. ABDOMEN: Soft, nondistended, nontender. No abdominal pain, no vomiting and normal appetite. MUSCULOSKELETAL: No joint tenderness, normal gait, normal tone. SKIN: Warm and dry. OVERALL IMPRESSION: Unstable angina, severe chest pain this morning at rest, worsening pain with exertion in a patient with a past history of coronary artery disease, smoking, hypertension, hyperlipidemia and family history of heart disease. Despite medical management, the pain is yet to resolve. We will add a long-acting nitrate, make her symptom relief with morphine and continued nitrates. Proceed with coronary angiography. CONSULT REPORT [id number] DEEPAKHEATHERLOLA BRUNILDA TRANSINT:[id number] Voice Confirmation ID: [id number] DOCUMENT ID: [id number] MARCIN HONEYCUTT MD at 1212 CC: [id number] DICTATION DATE: 09/10/19 1113 EQUIPMENT CLEANER AND TESTER: 09/10/19 1122 [facility] [address] [place] [address]
[2019-09-10 12:17] LABS: ALBUMIN 5.1 g/dL (3.4-5.0); ALKALINE PHOSPHATASE 140 U/L (46-116); ALT (SGPT) 26 U/L (10-68); BILIRUBIN - TOTAL 0.54 mg/dL (0.2-1.3); CALC OSMOLALITY 271 mosm/kg (275-300); CALCIUM 10.2 mg/dL (8.5-10.1); CARBON DIOXIDE 27.8 mmol/L (21.0-32.0); CHLORIDE - SERUM 97 mmol/L (98-107); CREATININE - SERUM 0.6 mg/dL (0.6-1.3); GLUCOSE 92 mg/dL (74-106); PROTEIN - SERUM 9.4 g/dL (6.4-8.2); SODIUM 136 mmol/L (136-145); UREA NITROGEN 13 mg/dL (7-18); eGFR NON AFRICAN AMERICAN > 90 mL/min (90-120)
[2019-09-10 12:30] LABS: CREATINE KINASE 131 UL (21-215); TROPONIN-I < 0.017 ng/mL (0.000-0.060)
--- NOTE | 2019-09-10 12:30 | NUR ---
PATIENT ARRIVED TO ROOM 4 VIA STRETCHER, PLACED ON CM, VSS. RIGHT GROIN DRESSING IS CDI, NO S/S OF BLEEDING OR HEMATOMA.
--- NOTE | 2019-09-10 12:45 | NUR ---
PHYSICIAN AT BEDSIDE TO UPDATE PATIENT, ALL QUESTIONS ANSWERED. VSS ON ROOM AIR. RIGHT GROIN DRESSING IS CDI,NO S/S OF BLEEDING OR HEMATOMA. NO C/O PAIN, NUMBNESS, OR TINGLING.
--- NOTE | 2019-09-10 13:00 | NUR ---
SPOKE WITH PHARMACY REGARDING PROMETHAZINE, PHARMACIST STATED THAT IF THE PATIENT HAS HAD IT PREVIOUSLY ADMINISTRATION WOULD BE APPROPRIATE. PATIENT STATES THAT SHE HAS RECEIVED PROMETHAZINE PREVIOUSLY WITHOUT ANY SIDE EFFECTS. RIGHT GROIN DRESSING IS CDI, NO S/S OF BLEEDING OR HEMATOMA. NO C/O PAIN, NUMBNESS, OR TINGLING. VSS ON ROOM AIR.
--- NOTE | 2019-09-10 13:15 | NUR ---
VSS ON ROOM AIR. RIGHT GROIN DRESSING IS CDI, NO S/S OF BLEEDING OR HEMATOMA. NO C/O PAIN, NUMBNESS, OR TINGLNG.
--- NOTE | 2019-09-10 13:28 | NUR ---
IM PROMETHAZINE GIVEN IN LEFT GLUTE ORDERED.
--- NOTE | 2019-09-10 13:45 | NUR ---
PATIENT AWAKE, HEAD OF BED ELEVATED TO 30 DEGREES. RIGHT GROIN DRESSING IS CDI, NO S/S OF BLEEDING OR HEMATOMA. NO C/O PAIN, NUMBNESS, OR TINGLING. VSS ON ROOM AIR. PATIENT STATES THAT NAUSEA IS 'BETTER'. TOLERATING PO FLUIDS.
--- NOTE | 2019-09-10 14:00 | NUR ---
HEAD OF BED AT 90 DEGREES. RIGHT GROIN DRESSING IS CDI, NO S/S OF BLEEDING OR HEMATOMA. NO N/V. TOLERATING PO FLUIDS. VSS ON ROOM AIR. IV REMOVED. EDUCATION REGARDING DISCHARGE INSTRUCTIONS GIVEN TO PATIENT, PATIENT VOICES UNDERSTANDING. PATIENT DISCONNECTED FROM MONITORS TO GET DRESSED.
--- NOTE | 2019-09-10 14:20 | NUR ---
PATIENT VOIDED WITHOUT DIFFICULTY. PATIENT TRANSPORTED VIA WHEELCHAIR TO CAR WITH SPOUSE DRIVING, ALL BELONGINGS WITH PATIENT.
--- NOTE | 2019-09-11 13:29 | OP ---
PATIENT NAME: LOLA HASSAN MEDICAL RECORD: [id number] :71 LOCATION:D.CAT ADMISSION DATE: SURGEON: MARCIN HONEYCUTT MD DATE OF OPERATION: 09/10/2019 PROCEDURES: 1. Left heart catheterization. 2. Selective coronary angiography. 3. Left ventriculogram. INDICATION: Chest pain compatible with angina. PROCEDURE IN DETAIL: After informed consent was obtained and after a detailed description of risks, benefits as well as alternative therapies, the patient elected to proceed with angiogram and heart catheterization. The right femoral area was prepped and draped in normal sterile fashion. Right femoral artery was cannulated via modified Seldinger technique with placement of 5-H[place] Konger sheath. All catheters exchanged through this sheath. FINDINGS: Left ventriculogram was performed in standard 30-degree BUTLER view, reveals good cardiac wall motion, ejection fraction estimated 60%. SELECTIVE CORONARY ANGIOGRAPHY: Left main, left anterior descending, left circumflex, and right coronary artery are all smooth-walled vessels with no angiographic evidence of coronary artery disease. OVERALL IMPRESSION: 1. No angiographic evidence of coronary artery disease. 2. Normal left heart pressures. 3. Normal left ventricular systolic function. Chest pain is noncardiac in etiology. No other cardiac workup needs to be ascertained. TRANSINT:[id number] Voice Confirmation ID: [id number] DOCUMENT ID: [id number] MARCIN HONEYCUTT MD at 1329 CC: [id number] DICTATION DATE: 09/10/19 1215 WELDING MACHINE OPERATOR THERMIT: 09/10/19 1224 DEP CLI 09/10/19 [place] [id number] [place] [id number]
== END 2019-09-10 14:20 ==
LOC: D.ER 10:16 → D.CATH 10:16 → EDSTATUS 11:55 → D.CATH 14:20
PROVIDERS: Family Medicine; ATTEND Internal Medicine Interventional Cardiology
DX: R07.9 Chest pain, unspecified (principal); I25.10 Atherosclerotic heart disease of native coronary artery without angina pectoris; I10 Essential (primary) hypertension; E78.5 Hyperlipidemia, unspecified

== ENCOUNTER 2019-11-08 21:29 | Emergency (ER) | payer MEDICARE, MEDICAID ==
[~2019-11-08] VITALS: Ht 154.9 cm; Wt 68.6 kg
[~2019-11-08 21:29] MED LIST changes: +BAYER CHEWABLE81 MG PO
[2019-11-08 21:39] VITALS: Ht 154.9 cm; Wt 68.6 kg
[2019-11-08 21:49] LABS: APPEARANCE CLEAR (CLEAR); BILIRUBIN NEGATIVE (NEGATIVE); COLOR YELLOW (YELLOW); GLUCOSE NEGATIVE (NEGATIVE); KETONE NEGATIVE (NEGATIVE); NITRITE NEGATIVE (NEGATIVE); PROTEIN NEGATIVE (NEGATIVE); SPECIFIC GRAVITY 1.015 (1.005-1.020); UROBILINOGEN NORMAL (NORMAL)
[2019-11-08 21:51] LABS: BACTERIA FEW /hpf (NEGATIVE); EPITHELIAL CELLS 0-5 /hpf (0-5); RED CELLS - URINE RARE /hpf (0-5); WHITE CELLS - URINE 0-5 /hpf (NEGATIVE); YEAST RARE /hpf (NONE SEEN)
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
[2019-11-08 21:58] LABS: UDS - AMPHET NEGATIVE QUAL (NEGATIVE); UDS - BARB NEGATIVE QUAL (NEGATIVE); UDS - BENZO POSITIVE QUAL (NEGATIVE); UDS - COCAINE NEGATIVE QUAL (NEGATIVE); UDS - OPIATE POSITIVE QUAL (NEGATIVE); UDS - PCP NEGATIVE QUAL (NEGATIVE); UDS - THC NEGATIVE QUAL (NEGATIVE)
[2019-11-08 22:03] LABS: BASOPHILS 0.4 % (0-2); EOSINOPHILS 1.7 % (0-7); HEMATOCRIT 40.2 % (36.0-48.0); HEMOGLOBIN 13.1 g/dL (12-16); MCH 32.6 pg (26.0-34.0); MCHC 32.6 g/dL (31.0-37.0); MONOCYTES 5.4 % (2-11); NEUTROPHILS 52.5 % (40-80); PLATELET COUNT 276 10x3/uL (130-400); RBC 4.02 10x6/uL (4.00-5.40); WBC 9.5 10x3/uL (4.8-10.8)
[2019-11-08 22:12] LABS: CALC OSMOLALITY 281 mosm/kg (275-300); CALCIUM 8.3 mg/dL (8.5-10.1); CHLORIDE - SERUM 103 mmol/L (98-107); CREATININE - SERUM 0.8 mg/dL (0.6-1.3); GLUCOSE 114 mg/dL (74-106); POTASSIUM - SERUM 4.4 mmol/L (3.5-5.1); SODIUM 139 mmol/L (136-145); UREA NITROGEN 20 mg/dL (7-18); eGFR NON AFRICAN AMERICAN 82 mL/min (90-120)
[2019-11-08 22:17] LABS: ACETAMINOPHEN 8.4 ug/mL (10.0-30.0); ALBUMIN 3.1 g/dL (3.4-5.0); ALKALINE PHOSPHATASE 86 U/L (46-116); BILIRUBIN - TOTAL 0.16 mg/dL (0.2-1.3); PROTEIN - SERUM 6.6 g/dL (6.4-8.2)
[2019-11-08 22:21] LABS: ALT (SGPT) 52 U/L (10-68)
[2019-11-08 23:33] VITALS: BP 132/84
== END 2019-11-08 23:55 ==
LOC: D.ER 21:29
PROVIDERS: Family Medicine
DX: F41.9 Anxiety disorder, unspecified (principal); R45.851 Suicidal ideations; F32.89 Other specified depressive episodes; G45.9 Transient cerebral ischemic attack, unspecified; I20.9 Angina pectoris, unspecified; R01.1 Cardiac murmur, unspecified; J44.9 Chronic obstructive pulmonary disease, unspecified; F32.9 Major depressive disorder, single episode, unspecified

== ENCOUNTER 2020-04-13 05:35 | Day surgery (SDC) | payer MEDICARE, MEDICAID ==
[2020-04-12 10:49] LABS: HEMATOCRIT 43.2 % (36.0-48.0); HEMOGLOBIN 14.1 g/dL (12-16); MCH 31.4 pg (26.0-34.0); MCHC 32.6 g/dL (31.0-37.0); MCV 96.2 fL (80.0-100.0); MEAN PLATELET VOLUME 9.5 fL (7.4-10.4); RBC 4.49 10x6/uL (4.00-5.40); RDW 14.6 % (11.5-14.5)
[~2020-04-13] VITALS: Ht 160 cm; Wt 81.2 kg
[2020-04-13 06:14] VITALS: BP 114/60; Ht 160 cm; Wt 81.2 kg
[2020-04-13] MEDS ORDERED: HYDROCODON-ACE1 EA10 PO (08:07)
--- NOTE | 2020-04-13 10:46 | NUR ---
0940-DISCHARGE CRITERIA MET.REMOVED IV WITH CATH INTACT,DISPOSED INTO SHARPS,COVERED WITH GUAZE,SECURED WITH MEDIPORE TAPE. REVIEWED POST OPERATIVE INSTRUCTIONS AND FOLLOW UP APPOINTMENT. VERBALIZED UNDERSTANDING.
--- NOTE | 2020-04-13 10:47 | NUR ---
0942-PT DRESSED.DRESSING CDI. CAP REFILL WNL. FINGERS WARM TO TOUCH.PAIN 02/01.NO DISTRESS, NO N/V. VSS. ESCORTED OUT VIA W/C WITH SPOUSE AWAITING TO DRIVE HOME
--- NOTE | 2020-04-14 08:14 | OP ---
PATIENT NAME: LOLA HASSAN MEDICAL RECORD: [id number] :71 LOCATION:D.OPS ADMISSION DATE: SURGEON: ERIC MAYFIELD MD DATE OF OPERATION: 04/13/2020 PREOPERATIVE DIAGNOSIS: Carpal tunnel syndrome of the left hand. POSTOPERATIVE DIAGNOSIS: Carpal tunnel syndrome of the left hand. PROCEDURE: Carpal tunnel release. SURGEON: Eric Mayfield MD ANESTHESIA: CHARLINE Underwood INTRAOPERATIVE COMPLICATIONS: None. SUMMARY OF PATHOLOGIC FINDINGS: The patient was indeed found to have a very tight transverse carpal ligament consistent with preoperative diagnosis. OPERATIVE SUMMARY IN DETAIL: After obtaining the appropriate preoperative orthopedic surgery consent as well as anesthetic consultation, evaluation and clearance, the patient was brought to the operating room and placed on the operating table in supine position. After adequate general laryngeal mask airway was administered, tourniquet was placed about the proximal aspect of the left upper extremity. The left upper extremity were prepped and draped in routine sterile fashion. The arm was elevated and exsanguinated, tourniquet inflated to 250 mmHg. Appropriate timeout was taken, given the patient's unique identifiers and agreed upon by all. Mid palmar incision was made along the fourth metacarpal ray taken gently down to the level of the transverse carpal ligament, which was incised in its entirety under direct visualization, both using a scalpel and a Inna light knife. This was then checked to make sure all impingement was removed. The wound was irrigated and closed by CHARLINE Underwood using 4-0 Prolene. The area was locally anesthetized with 0.25% Marcaine with epinephrine. Sterile dressings were applied. Tourniquet was deflated. The patient was awakened and taken to recovery room in stable condition. All final needle and sponge counts were correct. TRANSINT:[id number] Voice Confirmation ID: [id number] DOCUMENT ID: [id number] ERIC MAYFIELD MD at 0814 CC: [id number] DICTATION DATE: 04/13/20 1302 LENDING ACTIVITIES SUPERVISOR: 04/14/20 0021 [facility] 04/13/20 [place] [address]
== END 2020-04-13 09:42 | disposition home or self-care (01) ==
LOC: D.OPS 05:35 → D.PAN 07:30 → D.OPS 07:30 → D.PAN 10:45 → D.OPS 10:45
PROVIDERS: Anesthesiology; ATTEND Orthopaedic Surgery
DX: G56.02 Carpal tunnel syndrome, left upper limb (principal); J45.909 Unspecified asthma, uncomplicated

== ENCOUNTER 2020-05-14 13:37 | Emergency (ER) | payer MEDICARE, MEDICAID ==
[~2020-05-14] VITALS: Ht 160 cm; Wt 78.2 kg
[~2020-05-14 13:37] MED LIST changes: +HYDROCODON-ACE1 EA10 PO
[2020-05-14 13:46] VITALS: Ht 160 cm; Wt 78.2 kg
[2020-05-14 14:58] LABS: BASOPHILS 0.1 % (0-2); EOSINOPHILS 0.2 % (0-7); HEMATOCRIT 41.2 % (36.0-48.0); HEMOGLOBIN 13.8 g/dL (12-16); IMMATURE GRANULOCYTES 0.4 % (0-5); LYMPHOCYTES 20.9 % (15-50); MCH 31.7 pg (26.0-34.0); MCHC 33.5 g/dL (31.0-37.0); MCV 94.5 fL (80.0-100.0); MEAN PLATELET VOLUME 10.1 fL (7.4-10.4); MONOCYTES 4.2 % (2-11); NEUTROPHILS 74.2 % (40-80); PLATELET COUNT 269 10x3/uL (130-400); RBC 4.36 10x6/uL (4.00-5.40); RDW 14.4 % (11.5-14.5); WBC 9.5 10x3/uL (4.8-10.8)
[2020-05-14 14:59] LABS: BILIRUBIN NEGATIVE (NEGATIVE); GLUCOSE NEGATIVE (NEGATIVE); KETONE NEGATIVE (NEGATIVE); NITRITE NEGATIVE (NEGATIVE); UROBILINOGEN NORMAL (NORMAL)
[2020-05-14 15:03] LABS: BACTERIA FEW /hpf (NEGATIVE); EPITHELIAL CELLS 0-5 /hpf (0-5); RED CELLS - URINE >50 /hpf (0-5); WHITE CELLS - URINE 0-5 /hpf (NEGATIVE)
[2020-05-14 15:10] LABS: ANION GAP 13.6 mmol/L (8-16); CALCIUM 9.6 mg/dL (8.5-10.1); CARBON DIOXIDE 24.8 mmol/L (21.0-32.0); CREATININE - SERUM 0.9 mg/dL (0.6-1.3); POTASSIUM - SERUM 4.4 mmol/L (3.5-5.1)
[2020-05-14 15:18] LABS: ALBUMIN 4.2 g/dL (3.4-5.0); BILIRUBIN - TOTAL 0.45 mg/dL (0.2-1.3); PROTEIN - SERUM 7.9 g/dL (6.4-8.2)
[2020-05-14 15:37] LABS: HCG URINE NEGATIVE (NEGATIVE)
[2020-05-14 15:49] LABS: LIPASE 77 U/L (73-393); PRO BNP 166 pg/mL (0-125); TROPONIN-I < 0.017 ng/mL (0.000-0.060)
[2020-05-14] MEDS ORDERED: LEVSIN/ANASP0.125 MG PO (17:59)
[2020-05-14] MEDS ORDERED: PHENERGAN25 M1 PO (17:59)
[2020-05-14] MEDS ORDERED: CIPRO500 MG PO (18:01)
[2020-05-14 18:25] VITALS: BP 129/89
== END 2020-05-14 18:25 | disposition home or self-care (01) ==
LOC: D.ER 13:37
PROVIDERS: Emergency Medicine
DX: R13.10 Dysphagia, unspecified (principal); K44.9 Diaphragmatic hernia without obstruction or gangrene; R11.0 Nausea; N39.0 Urinary tract infection, site not specified; R10.13 Epigastric pain; R07.89 Other chest pain; J45.909 Unspecified asthma, uncomplicated; K21.9 Gastro-esophageal reflux disease without esophagitis

== ENCOUNTER 2020-05-19 05:35 | Day surgery (SDC) | payer MEDICARE, MEDICAID ==
[2020-05-16 11:38] LABS: HEMATOCRIT 40.8 % (36.0-48.0); HEMOGLOBIN 13.3 g/dL (12-16); MCH 30.8 pg (26.0-34.0); MCHC 32.6 g/dL (31.0-37.0); MCV 94.4 fL (80.0-100.0); RBC 4.32 10x6/uL (4.00-5.40); RDW 14.1 % (11.5-14.5)
[2020-05-16 11:39] LABS: WBC 6.1 10x3/uL (4.8-10.8)
[~2020-05-19] VITALS: Ht 160 cm; Wt 77.1 kg
[~2020-05-19 05:35] MED LIST changes: +CIPRO500 MG PO; +LEVSIN/ANASP0.125 MG PO
[2020-05-19 06:29] VITALS: BP 119/80; Ht 160 cm; Wt 77.1 kg
[2020-05-19] MEDS ORDERED: HYDROCODON-ACE1 EA10 PO (07:47)
--- NOTE | 2020-05-19 09:18 | NUR ---
0910 IV DC'D. CATHETER TIP INTACT. PRESSURE HELD UNTIL BLEEDING CEASED. BANDAID APPLIED. DISCHARGE INSTRUCTIONS REVIEWED WITH PT WHO VOICES UNDERSTANDING OF INSTRUCTIONS.
--- NOTE | 2020-05-19 14:28 | OP ---
PATIENT NAME: LOLA HASSAN MEDICAL RECORD: [id number] :71 LOCATION:D.OPS ADMISSION DATE: SURGEON: ERIC MAYFIELD MD DATE OF OPERATION: 05/19/2020 PREOPERATIVE DIAGNOSIS: Carpal tunnel syndrome of the left wrist. POSTOPERATIVE DIAGNOSIS: Carpal tunnel syndrome of the left wrist. PROCEDURE: Left carpal tunnel release. SURGEON: Eric Mayfield MD LEASE PURCHASE DRIVER: CHARLINE Underwood ANESTHESIA: General. INTRAOPERATIVE COMPLICATIONS: None. SUMMARY OF PATHOLOGIC FINDINGS: The patient was indeed found to have recurrence of tightness across the transverse carpal ligament consistent with the preoperative diagnosis, EMGs and NCVs. OPERATIVE SUMMARY IN DETAIL: After obtaining the appropriate preoperative orthopedic surgery consents as well as anesthetic consultation, evaluation and clearance, the patient was brought to the operating room and placed on the operating table in supine position. After general laryngeal mask airway was administered, tourniquet was placed about the proximal aspect of the left upper extremity. Left upper extremity was then prepped and draped in routine sterile fashion. The arm was elevated and exsanguinated, tourniquet inflated to 350 mmHg. Midline incision was made in line with the fourth metacarpal ray, taken down the level of the transverse carpal ligament was identified. Median nerve was then identified and protected throughout the case with the Collyer elevator and direct visualization, the entire transverse carpal ligament was released to the proximal wrist crease. Having completed this, the wound was irrigated and closed by CHARLINE Underwood. The area was locally infiltrated with 0.25% Marcaine plain. Sterile dressings were applied. Tourniquet was deflated. The patient was awakened, taken to recovery room in stable condition. All final needle and sponge counts were correct. TRANSINT:[id number] Voice Confirmation ID: [id number] DOCUMENT ID: [id number] ERIC MAYFIELD MD at 1428 CC: [id number] DICTATION DATE: 05/19/20 0741 DIMETHYLANILINE SULFATOR OPERATOR: 05/19/20 1400 [facility] 05/19/20 [id number] [place] [address]
== END 2020-05-19 09:30 | disposition home or self-care (01) ==
LOC: D.OPS 05:35 → D.PAN 10:15 → D.OPS 10:15
PROVIDERS: Anesthesiology; ATTEND Orthopaedic Surgery
DX: G56.02 Carpal tunnel syndrome, left upper limb (principal); K21.9 Gastro-esophageal reflux disease without esophagitis

== ENCOUNTER → 2020-06-10 07:44 | Outpatient (CLI) | payer MEDICARE, MEDICAID ==
[2020-05-19 06:29] VITALS: BMI 30.1
== END | disposition home or self-care (01) ==
LOC: D.RAD 07:44
PROVIDERS: ATTEND Internal Medicine Gastroenterology
DX: R11.2 Nausea with vomiting, unspecified (principal); R13.12 Dysphagia, oropharyngeal phase; R10.13 Epigastric pain; K59.00 Constipation, unspecified

== ENCOUNTER → 2020-06-20 08:45 | Outpatient (CLI) | payer MEDICARE, MEDICAID ==
[2020-05-19 06:29] VITALS: BMI 30.1
== END | disposition home or self-care (01) ==
LOC: D.NM 06-16 08:00
PROVIDERS: ATTEND Internal Medicine Gastroenterology
DX: R11.2 Nausea with vomiting, unspecified (principal); R13.12 Dysphagia, oropharyngeal phase; R10.13 Epigastric pain; K59.00 Constipation, unspecified

== ENCOUNTER 2020-08-25 08:00 | Outpatient (CLI) | payer MEDICARE, MEDICAID ==
[2020-05-19 06:29] VITALS: BMI 30.1
== END 2020-08-25 09:00 ==
LOC: D.OPS 08:00
PROVIDERS: ATTEND Surgery
DX: K44.9 Diaphragmatic hernia without obstruction or gangrene (principal); K21.9 Gastro-esophageal reflux disease without esophagitis

== ENCOUNTER 2020-09-06 05:51 | Day surgery (SDC) | payer MEDICARE, MEDICAID ==
[~2020-09-06] VITALS: Ht 160 cm; Wt 81.8 kg
--- NOTE | ~2020-09-06 | OP ---
PATIENT NAME: LOLA HASSAN MEDICAL RECORD: [id number] :71 LOCATION:D.OPS ADMISSION DATE: SURGEON: TRANG ENGLAND MD DATE OF OPERATION: 09/06/2020 PREOPERATIVE DIAGNOSES: 1. Gastroesophageal reflux disease. 2. Nondiabetic gastroparesis. 3. History of Helicobacter pylori. POSTOPERATIVE DIAGNOSES: 1. Gastroesophageal reflux disease. 2. Nondiabetic gastroparesis. 3. History of Helicobacter pylori. PROCEDURES: 1. EGD with biopsy. 2. Buckley pH probe monitor placement. SURGEON: Trang England MD REPORT OF PROCEDURE: An Olympus endoscope was advanced through the mouth and esophagus. We were able to easily pass through the stomach into the pylorus and into the second portion of the duodenum. There are no signs of any inflammation, masses or ulcerations. As we pulled the scope back, a random biopsy was taken of the antrum of the stomach. There was some mild inflammation near the pylorus, but no signs of any ulcerations or lesions. Retroflexed view showed no masses, lesions or ulcerations in the body or fundus of the stomach. The GE junction appeared to be normal with no signs of a hiatal hernia. The scope was pulled back and we could see that the GE junction was about 35 cm at the teeth. As we pulled this back further, we could see the distal aspect of the esophagus. There were some linear ulcerations present. They were very small. A random biopsy was taken of the distal third of the esophagus. We then removed the insufflation and pulled the scope out. We then inserted the Buckley pH monitor deployment device. We placed it about 30 cm at the teeth. Suction was applied to the area for about 30 seconds and then the device was deployed. COMPLICATIONS: None. CONDITION: Stable. ANESTHESIA: TIVA. BLOOD LOSS: Minimal. TRANSINT:[id number] Voice Confirmation ID: [id number] DOCUMENT ID: [id number] OPERATIVE REPORT [id number] LOLA HASSAN TRANG ENGLAND MD CC: [id number] DICTATION DATE: 09/06/20815 POKE IN: 09/06/20 0953 [facility] 09/06/20 [id number] [place] [address]
[2020-09-06 06:25] LABS: HEMATOCRIT 42.2 % (36.0-48.0); HEMOGLOBIN 13.5 g/dL (12-16); MCH 31.1 pg (26.0-34.0); MCV 97.2 fL (80.0-100.0); MEAN PLATELET VOLUME 9.5 fL (7.4-10.4); RBC 4.34 10x6/uL (4.00-5.40); RDW 14.2 % (11.5-14.5); WBC 5.5 10x3/uL (4.8-10.8)
[2020-09-06 06:47] VITALS: Ht 160 cm; Wt 81.8 kg
--- NOTE | 2020-09-06 09:18 | NUR ---
0834 ZOFRAN 4MG IV FOR COMPLAINTS OF NAUSEA. Zaira GREGORY R.N.
--- NOTE | 2020-09-06 09:22 | NUR ---
0900 IV COMPLETED & DC'ED WITH CATH INTACT. DRESSING. Zaira GREGORY R.N. 0907 DRESSED. GIVEN DISCHARGE INFORMATION INCLUDING MED REC, SHEET LISTING NSAIDS TO AVOID, RTC APPT. & [facility] POST ENDOSCOPY D/C INSTRUCTIONS. PT HAS ALREADY RECEIVED HENDRIX INSTRUCTIONS PRIOR TO PROCEDURE FROM Maxine COATS R.N. WHEN QUESTIONED PT STATES SHE UNDERSTANDS HENDRIX INSTRUCTIONS. TO PRIVATE CAR PER WHEELCHAIR BY THIS NURSE. HOME WITH . Zaira GREGORY R.N.
== END 2020-09-06 09:07 | disposition home or self-care (01) ==
LOC: D.OPS 05:51
PROVIDERS: Anesthesiology; ATTEND Surgery
DX: K21.9 Gastro-esophageal reflux disease without esophagitis (principal); K31.84 Gastroparesis; B96.81 Helicobacter pylori [H. pylori] as the cause of diseases classified elsewhere

== ENCOUNTER 2021-01-22 13:31 | Inpatient (IN) | payer MEDICARE, MEDICAID ==
[~2021-01-22] VITALS: Ht 154.9 cm; Wt 94.1 kg
[~2021-01-22 13:31] MED LIST changes: +CLEOCIN HCL300 MG PO; +KEFLEX500 MG PO; +OMEPRAZOLE40 MG PO; +PROTONIX40 MG PO; +REGLAN10 MG PO; +REGLAN5 MG PO; +VALIUM 2 MG TAB2 MG PO; +VALIUM5 MG PO
[2021-01-22 13:49] LABS: BASOPHILS 0.3 % (0-2); EOSINOPHILS 1.1 % (0-7); HEMATOCRIT 40.7 % (36.0-48.0); HEMOGLOBIN 13.3 g/dL (12-16); IMMATURE GRANULOCYTES 0.5 % (0-5); LYMPHOCYTE ABS# 2.18 10x3/uL (1.18-3.74); MCH 31.4 pg (26.0-34.0); MCHC 32.7 g/dL (31.0-37.0); MEAN PLATELET VOLUME 8.8 fL (7.4-10.4); MONOCYTES 6.3 % (2-11); NEUTROPHIL ABS# 3.53 10x3/uL (1.56-6.13); NEUTROPHILS 56.8 % (40-80); PLATELET COUNT 397 10x3/uL (130-400); RBC 4.24 10x6/uL (4.00-5.40); WBC 6.2 10x3/uL (4.8-10.8)
[2021-01-22 13:56] LABS: CALC OSMOLALITY 276 mosm/kg (275-300); CALCIUM 9.3 mg/dL (8.5-10.1); CARBON DIOXIDE 25.7 mmol/L (21.0-32.0); CHLORIDE - SERUM 105 mmol/L (98-107); CREATININE - SERUM 0.8 mg/dL (0.6-1.3); GLUCOSE 103 mg/dL (74-106); POTASSIUM - SERUM 3.9 mmol/L (3.5-5.1); SODIUM 139 mmol/L (136-145); UREA NITROGEN 10 mg/dL (7-18); eGFR NON AFRICAN AMERICAN 81 mL/min (90-120)
[2021-01-22 14:05] LABS: BILIRUBIN NEGATIVE (NEGATIVE); KETONE NEGATIVE (NEGATIVE); NITRITE NEGATIVE (NEGATIVE); UROBILINOGEN NORMAL mg/dL (< 2)
[2021-01-22 14:05] LABS: ALBUMIN 3.7 g/dL (3.4-5.0); ALKALINE PHOSPHATASE 103 U/L (30-120); ALT (SGPT) 17 U/L (10-68); AMYLASE - SERUM 47 U/L (25-115); BILIRUBIN - TOTAL 0.15 mg/dL (0.2-1.3); LIPASE 127 U/L (73-393); PROTEIN - SERUM 7.9 g/dL (6.4-8.2); TROPONIN-I < 0.017 ng/mL (0.000-0.060)
[2021-01-22 14:07] LABS: HCG URINE NEGATIVE (NEGATIVE)
[2021-01-22 15:47] VITALS: BP 126/81
[2021-01-22 16:21] VITALS: BP 134/89; BMI 32.2
--- NOTE | 2021-01-22 16:38 | NUR ---
PATIENT ADMITTED TO MED SURG 1 WITH OIL RIGGER . OIL RIGGER SYRINGE STARTED AT 30 MG TOTAL, 30 ML. 2 ML USED TO PRIME TUBING AND PATIENT HAD PUSHED BUTTON TWICE SINCE STARTED. SYRINGE AT 26ML LINE IN SYRINGE UPON ADMISSION
--- NOTE | 2021-01-22 18:00 | NUR ---
ARRIVED ON UNIT VIA STRETCHER. UP TO BATHROOM AND SETTLED IN BED, DENIES NEEDS AT THIS TIME. BED LOW POSITION, CALL LIGHT IN REACH. FREE FROM SIGNS OF DISTRESS. WILL CONTINUE TO MONITOR.
--- NOTE | 2021-01-22 20:00 | NUR ---
AWAKE,ALERT.NO COMPLAITNS AT PRESENT TIME. IV INFUSING TO LFA WITHOUT REDNESS OR EDEMA NOTED. PROGRAM AND RESEARCH COORDINATOR MORPHINE IN USE FOR PAIN CONTROL. CL IN REACCH
[2021-01-22 20:51] VITALS: BP 145/79
[2021-01-23] VITALS (7 sets, daily range): BP systolic 118–164; BP diastolic 58–84; Ht 154.9 cm; Wt 94.1 kg
--- NOTE | 2021-01-23 05:49 | NUR ---
I have reviewed this patient and I concur with the Shift Assessment completed by the Licensed Practical Nurse today this shift.
[2021-01-23 06:16] LABS: BASOPHILS 0.6 % (0-2); EOSINOPHILS 1.3 % (0-7); HEMATOCRIT 37.8 % (36.0-48.0); HEMOGLOBIN 11.8 g/dL (12-16); IMMATURE GRANULOCYTES 0.5 % (0-5); LYMPHOCYTE ABS# 2.06 10x3/uL (1.18-3.74); LYMPHOCYTES 32.6 % (15-50); MCH 30.3 pg (26.0-34.0); MCHC 31.2 g/dL (31.0-37.0); MCV 96.9 fL (80.0-100.0); MEAN PLATELET VOLUME 9.2 fL (7.4-10.4); NEUTROPHIL ABS# 3.54 10x3/uL (1.56-6.13); PLATELET COUNT 406 10x3/uL (130-400); RDW 14.1 % (11.5-14.5); WBC 6.3 10x3/uL (4.8-10.8)
[2021-01-23 06:41] LABS: ALBUMIN 3.3 g/dL (3.4-5.0); ALKALINE PHOSPHATASE 118 U/L (30-120); BILIRUBIN - TOTAL 0.15 mg/dL (0.2-1.3); CALCIUM 8.8 mg/dL (8.5-10.1); CARBON DIOXIDE 24.4 mmol/L (21.0-32.0); CHLORIDE - SERUM 106 mmol/L (98-107); CREATININE - SERUM 0.8 mg/dL (0.6-1.3); GLUCOSE 97 mg/dL (74-106); MAGNESIUM - SERUM 1.9 mg/dL (1.8-2.4); POTASSIUM - SERUM 3.6 mmol/L (3.5-5.1); SODIUM 139 mmol/L (136-145); eGFR NON AFRICAN AMERICAN 81 mL/min (90-120)
[2021-01-23 06:53] LABS: ALT (SGPT) 33 U/L (10-68); CALC OSMOLALITY 275 mosm/kg (275-300); UREA NITROGEN 7 mg/dL (7-18)
[2021-01-23 07:02] LABS: APTT 27.1 SECONDS (22.8-39.4); INR 1.07 (0.85-1.17); PROTIME 12.8 SECONDS (11.6-15.0)
--- NOTE | 2021-01-23 07:39 | NUR ---
PT PROVIDED WITH A TOWEL TO DRY HER HAIR. CO OF PAIN AT A 8 OUT OF 10 ON THE PAIN SCALE. STATES SHE IS HAVING SOME NAUSEA. CL IN REACH. NO NEEDS AT THIS TIME. WCTM
--- NOTE | 2021-01-23 11:06 | NUR ---
PT STATES SHE HAS HAD A HYSTERECTOMY 25 YEARS AGO. URINE TEST CANCELLED.
[2021-01-24] VITALS (12 sets, daily range): BP systolic 98–127; BP diastolic 51–83
--- NOTE | 2021-01-24 00:37 | NUR ---
PIV ALARMING. PT STATES SORE. PIV 22G PLACED TO LEFT WRIST. OLD PIV REMOVED AND PRESSURE HELD TO SITE. WILL CONT TO MONITOR.
[2021-01-24 06:33] LABS: EOSINOPHILS 3.1 % (0-7); HEMATOCRIT 39.8 % (36.0-48.0); HEMOGLOBIN 12.7 g/dL (12-16); IMMATURE GRANULOCYTES 0.2 % (0-5); LYMPHOCYTE ABS# 2.17 10x3/uL (1.18-3.74); LYMPHOCYTES 41.7 % (15-50); MCH 30.7 pg (26.0-34.0); MCHC 31.9 g/dL (31.0-37.0); MCV 96.1 fL (80.0-100.0); NEUTROPHIL ABS# 2.51 10x3/uL (1.56-6.13); PLATELET COUNT 380 10x3/uL (130-400); RBC 4.14 10x6/uL (4.00-5.40); RDW 13.5 % (11.5-14.5); WBC 5.2 10x3/uL (4.8-10.8)
[2021-01-24 06:39] LABS: ALBUMIN 3.5 g/dL (3.4-5.0); ALKALINE PHOSPHATASE 114 U/L (30-120); ALT (SGPT) 28 U/L (10-68); BILIRUBIN - TOTAL 0.29 mg/dL (0.2-1.3); CALC OSMOLALITY 270 mosm/kg (275-300); CALCIUM 9.4 mg/dL (8.5-10.1); CARBON DIOXIDE 27.4 mmol/L (21.0-32.0); CHLORIDE - SERUM 100 mmol/L (98-107); CREATININE - SERUM 0.7 mg/dL (0.6-1.3); GLUCOSE 92 mg/dL (74-106); MAGNESIUM - SERUM 2.1 mg/dL (1.8-2.4); POTASSIUM - SERUM 3.8 mmol/L (3.5-5.1); PROTEIN - SERUM 7.5 g/dL (6.4-8.2); SODIUM 136 mmol/L (136-145); UREA NITROGEN 9 mg/dL (7-18); eGFR NON AFRICAN AMERICAN > 90 mL/min (90-120)
--- NOTE | 2021-01-24 07:04 | NUR ---
PT UP WALKING AROUND ROOM. WASHING HER HANDS. PT STATES THAT SHE JUST STARTED BEING NAUSEOUS AGAIN. NO FURTHER NEEDS AT THIS TIME. BERNARDINOTM
[2021-01-25] VITALS: BP 107/51
[2021-01-25 04:00] VITALS: BP 125/64
--- NOTE | 2021-01-25 05:50 | NUR ---
I have reviewed this patient and I concur with the Shift Assessment completed by the Licensed Practical Nurse today this shift.
[2021-01-25 05:55] LABS: BASOPHILS 0.1 % (0-2); EOSINOPHILS 0.3 % (0-7); HEMATOCRIT 33.6 % (36.0-48.0); HEMOGLOBIN 10.7 g/dL (12-16); IMMATURE GRANULOCYTES 0.3 % (0-5); LYMPHOCYTE ABS# 1.38 10x3/uL (1.18-3.74); LYMPHOCYTES 20.3 % (15-50); MCH 30.3 pg (26.0-34.0); MCHC 31.8 g/dL (31.0-37.0); MCV 95.2 fL (80.0-100.0); MEAN PLATELET VOLUME 9.2 fL (7.4-10.4); MONOCYTES 7.7 % (2-11); NEUTROPHIL ABS# 4.84 10x3/uL (1.56-6.13); NEUTROPHILS 71.3 % (40-80); PLATELET COUNT 312 10x3/uL (130-400); RBC 3.53 10x6/uL (4.00-5.40); RDW 13.5 % (11.5-14.5)
[2021-01-25 06:16] LABS: WBC 6.8 10x3/uL (4.8-10.8)
[2021-01-25 06:18] LABS: ALKALINE PHOSPHATASE 84 U/L (30-120); ALT (SGPT) 28 U/L (10-68); BILIRUBIN - TOTAL 0.28 mg/dL (0.2-1.3); CALC OSMOLALITY 273 mosm/kg (275-300); CALCIUM 8.5 mg/dL (8.5-10.1); CARBON DIOXIDE 23.8 mmol/L (21.0-32.0); CHLORIDE - SERUM 103 mmol/L (98-107); CREATININE - SERUM 0.7 mg/dL (0.6-1.3); GLUCOSE 73 mg/dL (74-106); MAGNESIUM - SERUM 1.6 mg/dL (1.8-2.4); POTASSIUM - SERUM 3.6 mmol/L (3.5-5.1); PROTEIN - SERUM 6.3 g/dL (6.4-8.2); SODIUM 138 mmol/L (136-145); UREA NITROGEN 10 mg/dL (7-18); eGFR NON AFRICAN AMERICAN > 90 mL/min (90-120)
[2021-01-25 09:28] VITALS: BP 149/94
[2021-01-25 12:31] VITALS: BP 145/66
[2021-01-25 16:56] VITALS: BP 153/81
[2021-01-25 20:00] VITALS: BP 179/91
[2021-01-26] VITALS: BP 142/72
[2021-01-26 04:00] VITALS: BP 147/71
[2021-01-26 06:36] LABS: BASOPHILS 1.1 % (0-2); EOSINOPHILS 4.9 % (0-7); HEMATOCRIT 34.1 % (36.0-48.0); HEMOGLOBIN 10.8 g/dL (12-16); IMMATURE GRANULOCYTES 0.4 % (0-5); LYMPHOCYTE ABS# 1.91 10x3/uL (1.18-3.74); LYMPHOCYTES 36.3 % (15-50); MCH 30.9 pg (26.0-34.0); MCHC 31.7 g/dL (31.0-37.0); MEAN PLATELET VOLUME 9.1 fL (7.4-10.4); NEUTROPHIL ABS# 2.64 10x3/uL (1.56-6.13); NEUTROPHILS 50.3 % (40-80); PLATELET COUNT 282 10x3/uL (130-400); RBC 3.49 10x6/uL (4.00-5.40); RDW 13.6 % (11.5-14.5); WBC 5.3 10x3/uL (4.8-10.8)
[2021-01-26 06:39] LABS: MCV 97.7 fL (80.0-100.0)
[2021-01-26 07:30] LABS: ALBUMIN 3.3 g/dL (3.4-5.0); ALKALINE PHOSPHATASE 93 U/L (30-120); ALT (SGPT) 26 U/L (10-68); BILIRUBIN - TOTAL 0.29 mg/dL (0.2-1.3); CALCIUM 9.1 mg/dL (8.5-10.1); CARBON DIOXIDE 23.6 mmol/L (21.0-32.0); CHLORIDE - SERUM 103 mmol/L (98-107); CREATININE - SERUM 0.8 mg/dL (0.6-1.3); MAGNESIUM - SERUM 1.9 mg/dL (1.8-2.4); POTASSIUM - SERUM 3.8 mmol/L (3.5-5.1); PROTEIN - SERUM 6.3 g/dL (6.4-8.2); SODIUM 139 mmol/L (136-145); eGFR NON AFRICAN AMERICAN 81 mL/min (90-120)
[2021-01-26 07:31] LABS: CALC OSMOLALITY 273 mosm/kg (275-300); GLUCOSE 66 mg/dL (74-106); UREA NITROGEN 7 mg/dL (7-18)
[2021-01-26 07:51] VITALS: BP 177/71
--- NOTE | 2021-01-26 08:00 | NUR ---
IV'S INFILTRATED AND DISCONTINUED. RESTARTED WITH 22G TO RT. FOREARM WITH IVF RESTARTED AT PRESCRIBED RATE. TELEMETRY INTACT WITH SALES REPRESENTATIVE CASH REGISTERS DILAUDID AT PRESCRIBED SETTINGS. JERSON DRAIN X1 TO UPPER ABDOMEN WITH SEROUS DRAINAGE NOTED. ENCOURAGED TO USE CALL LIGHT FOR ASSSIT.
[2021-01-26 11:05] VITALS: BP 154/75
--- NOTE | 2021-01-26 13:40 | NUR ---
Nutrition follow-up: pt now on clear liquid diet; may advance further after Dr. Lamar rounds today Labs reviewed wT: 207# Per nurse, pt with no N/V RDN will follow-up: 01/30/21
--- NOTE | 2021-01-26 14:50 | OP ---
PATIENT NAME: LOLA HASSAN MEDICAL RECORD: [id number] :71 LOCATION:D.MS Fernandez2200 ADMISSION DATE:01/22/21 SURGEON: CARLO ENGLAND MD DATE OF OPERATION: 01/24/2021 PREOPERATIVE DIAGNOSES: 1. Perforated gastric ulcer. 2. Intra-abdominal abscess. 3. Anxiety. 4. Posttraumatic stress disorder. 5. History of recent Anisa fundoplication. POSTOPERATIVE DIAGNOSES: 1. Perforated gastric ulcer. 2. Intra-abdominal abscess. 3. Anxiety. 4. Posttraumatic stress disorder. 5. History of recent Anisa fundoplication. PROCEDURE: Diagnostic laparoscopy with drainage of intra-abdominal abscess. SURGEON: Carlo England MD DESCRIPTION OF PROCEDURE: The patient's abdomen was prepped and draped in sterile fashion. A Veress needle was inserted in the left upper quadrant and the abdomen was insufflated. An 11-mm Visiport trocar was inserted in the midline just above the umbilicus. I could see the Veress needle and there was no sign of any injury to bowel or surrounding structures. A 5-mm trocar was placed in the epigastrium and another 5-mm trocar was placed in the left subcostal region. We could see there were some inflammatory changes in the patient's left upper quadrant approaching the lateral aspect of the left lobe of the liver. We took down any of the adhesions to the anterior abdominal wall and eventually came underneath the left lobe of the liver and was able to free up these adhesions. Upon doing this, we encountered a small abscess cavity, which did not have any purulence, but had some proteinaceous material that looked most consistent with necrotic fatty tissue. This fatty tissue was removed. We irrigated out the area and sent some of this fluid off for culture. We then irrigated out the area thoroughly and freed up all the adhesions that we could find. The lateral and superior aspect of the patient's stomach was very inflamed. I did not see any evidence of any open ulcerations. I took some of the nearby fatty tissue and laid it over top of the inflamed tissue. I then inserted a 15 fully fluted drain in through the left subcostal incision and placed it underneath the liver overlying the area of inflamed gastric tissue. The remainder of the abdomen appeared to be normal with no signs of any abscess pockets or cavities. A preoperative CT scan confirmed this finding. The drain was sutured in place with a 3-0 nylon. The 11-mm trocar site fascia was closed with an 0 Vicryl using a Martin-Gail suture passer device. The ports and insufflation were then removed. The wounds were irrigated out and infused with 10 mL of 0.25% Marcaine with epinephrine. The skin incisions were closed with subcutaneous 5-0 Monocryl and dressed appropriately. COMPLICATIONS: None. CONDITION: Stable. OPERATIVE REPORT [id number] LOLA HASSAN ANESTHESIA: General endotracheal and local. BLOOD LOSS: 30 mL. TRANSINT:[id number] Voice Confirmation ID: [id number] DOCUMENT ID: [id number] CARLO ENGLAND MD at 1450 CC: [id number] DICTATION DATE: 01/24/21 1018 WIRE LATHER: 01/24/21 1317 ADM IN [facility] [address] [id number]
--- NOTE | 2021-01-26 14:50 | OP ---
PATIENT NAME: LOLA HASSAN MEDICAL RECORD: [id number] :71 LOCATION:D.MS Fern[facility]2200 ADMISSION DATE:01/22/21 SURGEON: TRANG ENGLAND MD DATE OF OPERATION: 01/23/2021 PREOPERATIVE DIAGNOSES: 1. Perforated gastric ulcer. 2. Anxiety. 3. History of recent fundoplication. 4. Posttraumatic stress disorder. POSTOPERATIVE DIAGNOSES: 1. Perforated gastric ulcer. 2. Anxiety. 3. History of recent fundoplication. 4. Posttraumatic stress disorder. PROCEDURE: EGD with biopsy. SURGEON: Trang England MD REPORT OF PROCEDURE: An Olympus endoscope was advanced through the patient's mouth and esophagus. We were able to easily pass through the GE junction and into the stomach. There were some retained food product and fluid in the stomach consistent with a known history of gastroparesis. We passed through the patient's pylorus and into the small bowel. We were able to visualize the second and first portion of the duodenum and there were no signs of any ulcerations or masses. As we pulled back, the stomach appeared to be fairly normal with no signs of any inflammatory changes. A random biopsy was taken near the antrum. As we did retroflex views, we did see that the patient did have a patent fundoplication with no signs of any inflammatory changes on the wrap itself. I did a close inspection of the wrap to see if there are any signs of any suture material, which was visible through the mucosa and there was none. As we inspected the stomach closer, I did find an area on the body of the stomach near the greater curvature, which had evidence of an ulceration. A random biopsy was taken at this ulcer site. I irrigated out the area and with doing this, there was some spillage of some contents back into the gastric lumen consistent with a perforated gastric ulcer, which was seen on the previous CT scan. We irrigated out the gastric lumen and then removed any insufflation. The scope was pulled back slowly through the esophagus and we saw no signs of any inflammation or perforations. At this point, the scope was completely removed. COMPLICATIONS: None. CONDITION: Stable. ANESTHESIA: TIVA. BLOOD LOSS: Minimal. TRANSINT:[id number] Voice Confirmation ID: [id number] DOCUMENT ID: [id number] OPERATIVE REPORT [id number] LOLA HASSAN TRANG CURIEL MD at 1450 CC: [id number] DICTATION DATE: 01/23/21 1309 MANAGER PARKING: 01/23/21 1433 ADM IN [facility] [address] [id number]
[2021-01-26 16:48] VITALS: BP 113/77
[2021-01-26 20:00] VITALS: BP 105/53
--- NOTE | 2021-01-27 01:18 | NUR ---
ASSESSED AT THE BEGINNING OF THE SHIFT. PT IS ALEART AND ORIENTED, ABLE TO VERBALIZE NEEDS. SHE HAS BEEN UP TO BATHROOM AD [place] AND IS ON ROOM AIR. EARLY IN THE SHIFT SHE COMPLAINED ABOUT HER IV SITE AND IT WAS DC'D. IT WAS VERY MUCH LATER WHEN WE WERE ABLE TO GET A NEW ONE STARTED. IT IS NOW IN HER LEFT THUMB. SHE IS NOW GETTING ORAL PAIN MEDS AND HAS STATED THEY ARE NOT WORKING WELL. SHE IS SET TO GET A DOSE AROUND 0130. HER TELEMETY IS SHOWING A SR IN THE 70'S AND SHE HAS NOT HAD ANY COMPLAINTS.
[2021-01-27 04:00] VITALS: BP 135/80
[2021-01-27 07:00] LABS: BASOPHILS 0.8 % (0-2); EOSINOPHILS 4.3 % (0-7); HEMATOCRIT 35.6 % (36.0-48.0); HEMOGLOBIN 11.5 g/dL (12-16); IMMATURE GRANULOCYTES 0.3 % (0-5); LYMPHOCYTE ABS# 0.96 10x3/uL (1.18-3.74); LYMPHOCYTES 24.4 % (15-50); MCH 30.6 pg (26.0-34.0); MCHC 32.3 g/dL (31.0-37.0); MEAN PLATELET VOLUME 9.6 fL (7.4-10.4); MONOCYTES 8.9 % (2-11); NEUTROPHIL ABS# 2.42 10x3/uL (1.56-6.13); NEUTROPHILS 61.3 % (40-80); PLATELET COUNT 315 10x3/uL (130-400); RBC 3.76 10x6/uL (4.00-5.40); RDW 13.4 % (11.5-14.5)
[2021-01-27 07:03] LABS: MCV 94.7 fL (80.0-100.0); WBC 3.9 10x3/uL (4.8-10.8)
[2021-01-27 07:05] LABS: ALBUMIN 3.2 g/dL (3.4-5.0); ALKALINE PHOSPHATASE 88 U/L (30-120); ALT (SGPT) 21 U/L (10-68); BILIRUBIN - TOTAL 0.26 mg/dL (0.2-1.3); CALC OSMOLALITY 275 mosm/kg (275-300); CALCIUM 9.3 mg/dL (8.5-10.1); CARBON DIOXIDE 28.8 mmol/L (21.0-32.0); CHLORIDE - SERUM 103 mmol/L (98-107); GLUCOSE 91 mg/dL (74-106); MAGNESIUM - SERUM 1.9 mg/dL (1.8-2.4); POTASSIUM - SERUM 3.9 mmol/L (3.5-5.1); PROTEIN - SERUM 6.4 g/dL (6.4-8.2); SODIUM 139 mmol/L (136-145); UREA NITROGEN 6 mg/dL (7-18)
[2021-01-27 07:17] LABS: CREATININE - SERUM 0.5 mg/dL (0.6-1.3); eGFR NON AFRICAN AMERICAN > 90 mL/min (90-120)
[2021-01-27 07:44] VITALS: BP 115/65
--- OUTSIDE RECORDS SUMMARY | 2021-01-27 08:38 | XMS Report ---
Demographics + + + | Address | [address] | | | [place] | | | [address] | + + + | Home Phone | | + + + | Preferred Language | Unknown | + + + | Marital Status | | + + + | Sikhism Affiliation | Unknown | + + + | Race | White | + + + | Ethnic Group | Not or | + + + Author + + + | Author | [facility], | | | [facility] | | | [place] | + + + | Organization | [facility], | | | [facility] | | | [place] | + + + | Address | [address] | | | [place] [address] | | | | + + + | Phone | [phone] | + + + Care Team Providers + +------+ + | Care Business Quality Assurance Analyst Name | Role | Phone | + +------+ + | NELLIE METZ | 3 | [phone] | + +------+ + | NELLIE METZ | 4 | [phone] | + +------+ + | NELLIE METZ | 3 | [phone] | + +------+ + Reason for Referral Reason for Visit Essential hypertension Assessment No assessment recorded. Patient Targets + + + + | Encounter Date | Instructions | Goals | | | | | | | | | + + + + | 01/24/2021 | | | | | | | | | | | + + + + Plan of Treatment + + + + + + + | Reminders | | Order | Submit | Provider | Details | | | | Date | Date | | | | | | | | | | | | | | | | | | | | | | | | | | | | | | | + + + + + + + | | | | | | | | | | 01/30/202 | | Bahai | | | | | 1 09:45AM | | Willard, | | | | | | | MD | | | | | | | | | | Appointme | Follow Up | | | | | | nts | | | | | | | | | | | | | | | | | | | | | | | | | | | | | | | | | | | | | | | | | | | | | | | | | | | | | | | | | | | | | | + + + + + + + | | None | | | | | | | recorded. | | | | | | | | | | | | | | | | | | | | Lab | | | | | | | | | | | | | | | | | | | | | | | | | | | | | | | | | | | | | | | | | | | | | | | | | | | | | | | | | | | | | | + + + + + + + | | | | | | | | | | | | National | | | | | 1 | | Park | | | | | | 1 | Medical | | | | | | | Center, | | | Referral | general | | | 130 | | | | surgery | | | Medical | | | | referral | | | Pk, Hot | | | | | | | [place], | | | | | | | [place], | | | | | | | [id number], Ph | | | | | | | ([phone]) | | | | | | | [phone] | | | | | | | | | | | | | | | | | | | | | | | | | | | | | | + + + + + + + | | None | | | | | | | recorded. | | | | | | | | | | | | | | | | | | | | | | | | | | | Procedure | | | | | | | s | | | | | | | | | | | | | | | | | | | | | | | | | | | | | | | | | | | | | | | | | | | | | | | | | | | | | | | | | | | | | | + + + + + + + | | None | | | | | | | recorded. | | | | | | | | | | | | | | | | | | | | | | | | | | | Surgeries | | | | | | | | | | | | | | | | | | | | | | | | | | | | | | | | | | | | | | | | | | | | | | | | | | | | | | | | | | | | | | + + + + + + + | | None | | | | | | | recorded. | | | | | | | | | | | | | | | | | | | | | | | | | | | Imaging | | | | | | | | | | | | | | | | | | | | | | | | | | | | | | | | | | | | | | | | | | | | | | | | | | | | | | | | | | | | | | + + + + + + + Results +--------+--------+--------+--------+--------+--------+--------+--------+ | Date | Name | Descri | Value | Unit | Range | Abnorm | Provid | | | | ption | | | | al | er | | | | | | | | Flag | Detail | | | | | | | | | | | | | | | | | | | | | | | | | | | | | | | | | | | | | | | | | | | | | | | | | | | | | | | +--------+--------+--------+--------+--------+--------+--------+--------+ | | XR, | | | | | | | | | abdome | | | | | | | | | n, 1 | | | | | | | | | view | | | | | | | | | | | | | | | | | | | | | | | | | | | | | | | | | | | | | | No | | | | Nation | | | | | observ | | | | al | | | | | ation | | | | Park | | | | | record | | | | Medica | | | | | ed. | | | | l | | | | | | | | | Center | | | | | | | | | | | | | | | | | | (Imagi | | | | | | | | | ng) | | | | | | | | | | | | | | | | | | | | | | | | | | | | | | | | | | | | | | | | | | | | | | | | | | | | | | | | | | | | | | | | | | | | | | | | | | | | | | | | | | | | | | | | | | | | | | | | | | | | | | | | | | | | | | | | | | | | | | | | | | | | | | | | | | | | | | | 1912 | | | | | | | | | [place] | | | | | | | | | [address], | | | | | | | | | Hot | | | | | | | | | Spring | | | | | | | | | s | | | | | | | | | Nation | | | | | | | | | al | | | | | | | | | Park, | | | | | | | | | [place], | | | | | | | | | [id number], | | | | | | | | | Ph | | | | | | | | | (501) | | | | | | | | | [address] | | | | | | | | | 75 | | | | | | | | | | | | | | | | | | | | | | | | | | | | | | | | | | | | | | | | | | | | | | | | | | | | | | | | | | | | | | | | | | | | | | | | | | | | | | | | | | | | | | | | | | | | | | | | | | | | +--------+--------+--------+--------+--------+--------+--------+--------+ | | XR, | | | | | | | | | upper | | | | | | | | | gastro | | | | | | | | | intest | | | | | | | | | inal | | | | | | | | | series | | | | | | | | | | | | | | | | | | | | No | | | | Nation | | | | | observ | | | | al | | | | | ation | | | | Park | | | | | record | | | | Medica | | | | | ed. | | | | l | | | | | | | | | Center | | | | | | | | | | | | | | | | | | (Imagi | | | | | | | | | ng) | | | | | | | | | | | | | | | | | | | | | | | | | | | | | | | | | | | | | | | | | | | | | | | | | | | | | | | | | | | | | | | | | | | | | | | | | | | | | | | | | | | | | | | | | | | | | | | | | | | | | | | | | | | | | | | | | | | | | | | | | | | | | | | | | | | | | | | 1912 | | | | | | | | | [place] | | | | | | | | | [address], | | | | | | | | | Hot | | | | | | | | | Spring | | | | | | | | | s | | | | | | | | | Nation | | | | | | | | | al | | | | | | | | | Park, | | | | | | | | | [place], | | | | | | | | | [id number], | | | | | | | | | Ph | | | | | | | | | (501) | | | | | | | | | [address] | | | | | | | | | 75 | | | | | | | | | | | | | | | | | | | | | | | | | | | | | | | | | | | | | | | | | | | | | | | | | | | | | | | | | | | | | | | | | | | | | | | | | | | | | | | | | | | | | | | | | | | | | | | | | | | | +--------+--------+--------+--------+--------+--------+--------+--------+ Problems +---------+---------+---------+---------+---------+---------+---------+ | Name | Status | Last | Onset | Resolut | Lateral | Problem | | | | Modifie | Date | ion | ity | Type | | | | d Date | | Date | | | | | | | | | | | | | | | | | | | | | | | | | | | | | | | | | | | | | | | | | | | +---------+---------+---------+---------+---------+---------+---------+ | Carpal | Active | | | | | | | tunnel | | 013 | | | | | | syndrom | | | | | | | | e | | | | | | | | | | | | | | | | | | | | | | | | | | | | | | | | | | | | | | | | | | | | | | | +---------+---------+---------+---------+---------+---------+---------+ | Gastroe | Active | | | | | | | sophage | | 020 | 020 | | | | | al | | | | | | | | reflux | | | | | | | | disease | | | | | | | | | | | | | | | | without | | | | | | | | | | | | | | | | esophag | | | | | | | | itis | | | | | | | | | | | | | | | | | | | | | | | | | | | | | | | | | | | | | | | | | | | | | | | +---------+---------+---------+---------+---------+---------+---------+ | Gastroe | Active | | | | | | | sophage | | 020 | 020 | | | | | al | | | | | | | | reflux | | | | | | | | disease | | | | | | | | with | | | | | | | | hiatal | | | | | | | | hernia | | | | | | | | | | | | | | | | | | | | | | | | | | | | | | | | | | | | | | | | | | | | | | | +---------+---------+---------+---------+---------+---------+---------+ | Cervica | Active | | | | | | | l | | 021 | 021 | | | | | radicul | | | | | | | | opathy | | | | | | | | | | | | | | | | | | | | | | | | | | | | | | | | | | | | | | | | | | | | | | | +---------+---------+---------+---------+---------+---------+---------+ | Hand | Active | | | | | | | pain | | 013 | | | | | | | | | | | | | | | | | | | | | | | | | | | | | | | | | | | | | | | | | | | | | +---------+---------+---------+---------+---------+---------+---------+ | General | Active | | | | | | | ized | | 013 | | | | | | abdomin | | | | | | | | al pain | | | | | | | | | | | | | | | | | | | | | | | | | | | | | | | | | | | | | | | | | | | | | | | | | | | | | | | +---------+---------+---------+---------+---------+---------+---------+ | Contusi | Active | | | | | ACUTE | | on of | | 016 | | | | | | left | | | | | | | | foot | | | | | | | | | | | | | | | | | | | | | | | | | | | | | | | | | | | | | | | | | | | | | | | +---------+---------+---------+---------+---------+---------+---------+ | Pain of | Active | | | | | | | | | 019 | 019 | | | | | bilater | | | | | | | | al | | | | | | | | hands | | | | | | | | | | | | | | | | | | | | | | | | | | | | | | | | | | | | | | | | | | | | | | | +---------+---------+---------+---------+---------+---------+---------+ Procedures Surgical History + + + + + | Date | Name | Laterality | Status | | | | | | | | | | | | | | | | + + + + + | 04/10/2013 | | | completed | | | | | | | | | | | | | CARPAL TUNNEL | | | | | RELEASE (SURG) | | | | | | | | | | | | | | | | | | | | | | | | | | | | + + + + + | 03/20/2013 | | | completed | | | | | | | | | | | | | CARPAL TUNNEL | | | | | RELEASE (SURG) | | | | | | | | | | | | | | | | | | | | | | | | | | | | + + + + + | | | | active | | | | | | | | | | | | | CARPAL TUNNEL | | | | | RELEASE (SURG) | | | | | | | | | | | | | | | | | | | | | | | | | | | | + + + + + | | | | active | | | | | | | | | | | | | Appendectomy | | | | | | | | | | | | | | | | | | | | | | | | | | | | + + + + + | | | | active | | | | | | | | | | | | | Cholecystectomy | | | | | | | | | | | | | | | | | | | | | | | | | | | | + + + + + | | | | active | | | | | | | | | | | | | Hysterectomy | | | | | | | | | | | | | | | | | | | | | | | | | | | | + + + + + Imaging Results None recorded. Medical Equipment None Reported. Allergies + + + + + + + | Name | Reaction | Severity | Status | Onset | Category | | | | | | | | | | | | | | | | | | | | | | | | | | | | | + + + + + + + | | | | | | | | | | | | | | | | | | | | | | | | | | | | | | other | | | | | | Compazine | | severe | active | | Medicatio | | | | | | | n Allergy | | | | | | | | | | | | | | | | | | | | | | | | | | | | | | | | | | | | | | | | | | | | | | | | | | | | | | | | | + + + + + + + | | | | | | | | | | | | | | | | | | | | | | | | | | | | | | | | | | | | Haldol | | | active | | Medicatio | | | | | | | n Allergy | | | | | | | | | | | | | | | | | | | | | | | | | | | | | | | | | | | | | | | | | | | | | | | | | | | | | | | | | + + + + + + + | | | | | | | | | | | | | | | | | | | | | | | | | | | | | | | | | | | | Flexeril | | | completed | | Non-Medic | | | | | | | ation | | | | | | | Allergy | | | | | | | | | | | | | | | | | | | | | | | | | | | | | | | | | | | | | | | | | | | | | | | | | | | | | | | | | + + + + + + + Medications + + + + + + + | Name | Sig | Start | Stop Date | Status | Note | | | | Date | | | | | | | | | | | | | | | | | | | | | | | | | | | | | | | | + + + + + + + | | | | | completed | | | | | | | | | | | | | | | | | | | 4 | 9 | | | | | TAKE | | | | | | | 1 TABLET | | | | | | | BY MOUTH | | | | | | carisopro | THREE | | | | | | dol [address] | TIMES | | | | | | mg tablet | DAILY | | | | | | | | | | | | | | | | | | | | | | | | | | | | | | | | | | | | | | | | | | | | | | | | | | | | | | | | | | | | | | | | | | | | | | | | | | | + + + + + + + | | | | | completed | | | | | | | | | | | | | | | | | | | | 1 | | | | | Take | | | | | | | 1 tablet | | | | | | | twice a | | | | | | cyclobenz | day by | | | | | | aprine 10 | oral | | | | | | mg | route for | | | | | | tablet | 30 days. | | | | | | | | | | | | | | | | | | | | | | | | | | | | | | | | | | | | | | | | | | | | | | | | | | | | | | | | | | | | | | | | | | | | | | | | | | | + + + + + + + | | | | | completed | | | | | | | | | | | | | | | | | | | | 1 | | | | | | | | | | | | | | | | | | | | | | | | | amoxicill | | | | | | | in 500 mg | | | | | | | capsule | | | | | | | | | | | | | | | | | | | | | | | | | | | | | | | | | | | | | | | | | | | | | | | | | | | | | | | | | | | | | | | | | | | | | | | | | | | | + + + + + + + | | | | | completed | | | | | | | | | | | | | 03/05/202 | | | | | | | 0 | | | | | | | | | | | | | | | | | | | | | | | | | Proctosol | | | | | | | HC 2.5 % | | | | | | | rectal | | | | | | | cream | | | | | | | with | | | | | | | applicato | | | | | | | r | | | | | | | | | | | | | | | | | | | | | | | | | | | | | | | | | | | | | | | | | | | | | | | | | | | | | | | | | | | | | | | | | | | | | | | | | | | | + + + + + + + | | | | | completed | | | | | | | | | | | | | 08/10/202 | | | | | | | 0 | | | | | TK 5 | | | | | | | ML PO Q 4 | | | | | | | H | | | | | | promethaz | | | | | | | ine-DM | | | | | | | 6.25 | | | | | | | mg-15 | | | | | | | mg/5 mL | | | | | | | oral | | | | | | | syrup | | | | | | | | | | | | | | | | | | | | | | | | | | | | | | | | | | | | | | | | | | | | | | | | | | | | | | | | | | | | | | | | | | | | | | | | | | | | + + + + + + + | | | | | completed | | | | | | | | | | | | | 03/05/202 | | | | | | | 0 | | | | | | | | | | | | | | | | | | | | | | | | | imipramin | | | | | | | e 50 mg | | | | | | | tablet | | | | | | | | | | | | | | | | | | | | | | | | | | | | | | | | | | | | | | | | | | | | | | | | | | | | | | | | | | | | | | | | | | | | | | | | | | | | + + + + + + + | | | | | completed | | | | | | | | | | | | | 10/31/201 | | | | | | | 9 | | | | | | | | | | | | | | | | | | | | | | | | | venlafaxi | | | | | | | ne ER | | | | | | | 37.5 mg | | | | | | | capsule,e | | | | | | | xtended | | | | | | | release | | | | | | | 24 hr | | | | | | | | | | | | | | | | | | | | | | | | | | | | | | | | | | | | | | | | | | | | | | | | | | | | | | | | | | | | | | | | | | | | | | | | | | | | + + + + + + + | | | | | completed | | | | | | | | | | | | | 03/05/202 | | | | | | | 0 | | | | | | | | | | | | | | | | | | | | | | | | | prednison | | | | | | | e 10 mg | | | | | | | tablet | | | | | | | | | | | | | | | | | | | | | | | | | | | | | | | | | | | | | | | | | | | | | | | | | | | | | | | | | | | | | | | | | | | | | | | | | | | | + + + + + + + | | | | | completed | | | | | | | | | | | | | 03/06/202 | | | | | | | 0 | | | | | | | | | | | | | | | | | | | | | | | | | venlafaxi | | | | | | | ne ER 75 | | | | | | | mg | | | | | | | capsule,e | | | | | | | xtended | | | | | | | release | | | | | | | 24 hr | | | | | | | | | | | | | | | | | | | | | | | | | | | | | | | | | | | | | | | | | | | | | | | | | | | | | | | | | | | | | | | | | | | | | | | | | | | | + + + + + + + | | | | | completed | | | | | | | | | | | | | 08/10/202 | | | | | | | 0 | | | | | TK 1 | | | | | | | C PO BID | | | | | | | FOR 10 | | | | | | doxycycli | DAYS UTD | | | | | | ne | | | | | | | hyclate | | | | | | | 100 mg | | | | | | | capsule | | | | | | | | | | | | | | | | | | | | | | | | | | | | | | | | | | | | | | | | | | | | | | | | | | | | | | | | | | | | | | | | | | | | | | | | | | | | + + + + + + + | | | | | completed | | | | | | | | | | | | | 03//202 | | | | | | | 0 | | | | | | | | | | | | | | | | | | | | | | | | | venlafaxi | | | | | | | ne 75 mg | | | | | | | tablet | | | | | | | | | | | | | | | | | | | | | | | | | | | | | | | | | | | | | | | | | | | | | | | | | | | | | | | | | | | | | | | | | | | | | | | | | | | | + + + + + + + | | | | | active | | | | | | | | | | | | | | | | | | | | | | | | | | | | | | | | | | | | | | | | | | | | | tizanidin | | | | | | | e 2 mg | | | | | | | tablet | | | | | | | | | | | | | | | | | | | | | | | | | | | | | | | | | | | | | | | | | | | | | | | | | | | | | | | | | | | | | | | | | | | | | | | | | | | | + + + + + + + | | | | | completed | | | | | | | | | | | | | //202 | | | | | | | 1 | | | | | TAKE | | | | | | | 1 CAPSULE | | | | | | | BY MOUTH | | | | | | clindamyc | EVERY 8 | | | | | | in HCl | HOURS | | | | | | 300 mg | UNTIL | | | | | | capsule | GONE | | | | | | | | | | | | | | | | | | | | | | | | | | | | | | | | | | | | | | | | | | | | | | | | | | | | | | | | | | | | | | | | | | | | | | | | | | | + + + + + + + | | | | | completed | | | | | | | | | | | | | //201 | | | | | | | 9 | | | | | | | | | | | | | | | | | | | | | | | | | azithromy | | | | | | | edwin 250 | | | | | | | mg tablet | | | | | | | | | | | | | | | | | | | | | | | | | | | | | | | | | | | | | | | | | | | | | | | | | | | | | | | | | | | | | | | | | | | | | | | | | | | | + + + + + + + | | | | | completed | | | | | | | | | | | | | //201 | | | | | | | 9 | | | | | | | | | | | | | | | | | | | | | | | | | ibuprofen | | | | | | | 800 mg | | | | | | | tablet | | | | | | | | | | | | | | | | | | | | | | | | | | | | | | | | | | | | | | | | | | | | | | | | | | | | | | | | | | | | | | | | | | | | | | | | | | | | + + + + + + + | | | | | completed | | | | | | | | | | | | | 03/05/202 | | | | | | | 0 | | | | | Take | | | | | | | 1 tablet | | | | | | | 3 times a | | | | | | alprazola | day by | | | | | | m 1 mg | oral | | | | | | tablet | route as | | | | | | | needed. | | | | | | | | | | | | | | | | | | | | | | | | | | | | | | | | | | | | | | | | | | | | | | | | | | | | | | | | | | | | | | | | | | | | + + + + + + + | | | | | completed | | | | | | | | | | | | | 10/31/201 | | | | | | | 9 | | | | | | | | | | | | | | | | | | | | | | | | | ofloxacin | | | | | | | 0.3 % | | | | | | | eye drops | | | | | | | | | | | | | | | | | | | | | | | | | | | | | | | | | | | | | | | | | | | | | | | | | | | | | | | | | | | | | | | | | | | | | | | | | | | | + + + + + + + | | | | | completed | | | | | | | | | | | | | 03/06/202 | | | | | | | 0 | | | | | | | | | | | | | | | | | | | | | | | | | valentin | | | | | | | e 4 mg | | | | | | | tablet | | | | | | | | | | | | | | | | | | | | | | | | | | | | | | | | | | | | | | | | | | | | | | | | | | | | | | | | | | | | | | | | | | | | | | | | | | | | + + + + + + + | | | | | completed | | | | | | | | | | | | | 03/06/202 | | | | | | | 0 | | | | | | | | | | | | | | | | | | | | | | | | | methylphe | | | | | | | nidate 10 | | | | | | | mg | | | | | | | tablet | | | | | | | | | | | | | | | | | | | | | | | | | | | | | | | | | | | | | | | | | | | | | | | | | | | | | | | | | | | | | | | | | | | | | | | | | | | | + + + + + + + | | | | | completed | | | | | | | | | | | | | 01/08/202 | | | | | | | 1 | | | | | | | | | | | | | | | | | | | | | | | | | elena | | | | | | | mycin 500 | | | | | | | mg | | | | | | | tablet | | | | | | | | | | | | | | | | | | | | | | | | | | | | | | | | | | | | | | | | | | | | | | | | | | | | | | | | | | | | | | | | | | | | | | | | | | | | + + + + + + + | | | | | completed | | | | | | | | | | | | | 08//202 | | | | | | | 0 | | | | | Take | | | | | | | 1 tablet | | | | | | | twice a | | | | | | hydrocodo | day by | | | | | | ne 5 | oral | | | | | | mg-acetam | route as | | | | | | inophen | needed. | | | | | | 325 mg | | | | | | | tablet | | | | | | | | | | | | | | | | | | | | | | | | | | | | | | | | | | | | | | | | | | | | | | | | | | | | | | | | | | | | | | | | | | | | | | | | | | | | + + + + + + + | | | | | completed | | | | | | | | | | | | | //202 | | | | | | | 0 | | | | | | | | | | | | | | | | | | | | | | | | | ondansetr | | | | | | | on HCl 8 | | | | | | | mg tablet | | | | | | | | | | | | | | | | | | | | | | | | | | | | | | | | | | | | | | | | | | | | | | | | | | | | | | | | | | | | | | | | | | | | | | | | | | | | + + + + + + + | | | | | completed | | | | | | | | | | | | | | | | | | | | 0 | | | | | | | | | | | | | | | | | | | | | | | | | sucralfat | | | | | | | e 1 gram | | | | | | | tablet | | | | | | | | | | | | | | | | | | | | | | | | | | | | | | | | | | | | | | | | | | | | | | | | | | | | | | | | | | | | | | | | | | | | | | | | | | | | + + + + + + + | | | | | completed | | | | | | | | | | | | | | | | | | | | 0 | | | | | | | | | | | | | | | | | | | | | | | | | ondansetr | | | | | | | on HCl 4 | | | | | | | mg tablet | | | | | | | | | | | | | | | | | | | | | | | | | | | | | | | | | | | | | | | | | | | | | | | | | | | | | | | | | | | | | | | | | | | | | | | | | | | | + + + + + + + | | | | | completed | | | | | | | | | | | | | 03/05/202 | | | | | | | 0 | | | | | | | | | | | | | | | | | | | | | | | | | famotidin | | | | | | | e 40 mg | | | | | | | tablet | | | | | | | | | | | | | | | | | | | | | | | | | | | | | | | | | | | | | | | | | | | | | | | | | | | | | | | | | | | | | | | | | | | | | | | | | | | | + + + + + + + | | | | | active | | | | | | | | | | | | | | | | | | | | | | | | | | | | | | | | | | | | | | | | | | | | | prednison | | | | | | | e 20 mg | | | | | | | tablet | | | | | | | | | | | | | | | | | | | | | | | | | | | | | | | | | | | | | | | | | | | | | | | | | | | | | | | | | | | | | | | | | | | | | | | | | | | | + + + + + + + | | | | | completed | | | | | | | | | | | | | 10//201 | | | | | | | 9 | | | | | | | | | | | | | | | | | | | | | | | | | isosorbid | | | | | | | e | | | | | | | mononitra | | | | | | | te ER 30 | | | | | | | mg | | | | | | | tablet,ex | | | | | | | tended | | | | | | | release | | | | | | | 24 hr | | | | | | | | | | | | | | | | | | | | | | | | | | | | | | | | | | | | | | | | | | | | | | | | | | | | | | | | | | | | | | | | | | | | | | | | | | | | + + + + + + + | | | | | completed | | | | | | | | | | | | | 07/04/ | | | | | | | 0 | | | | | | | | | | | | | | | | | | | | | | | | | prednison | | | | | | | e 5 mg | | | | | | | tablet | | | | | | | | | | | | | | | | | | | | | | | | | | | | | | | | | | | | | | | | | | | | | | | | | | | | | | | | | | | | | | | | | | | | | | | | | | | | + + + + + + + | | | | | completed | | | | | | | | | | | | | 01/28/202 | | | | | | | 0 | | | | | | | | | | | | | | | | | | | | | | | | | hydroxyzi | | | | | | | ne | | | | | | | pamoate | | | | | | | 50 mg | | | | | | | capsule | | | | | | | | | | | | | | | | | | | | | | | | | | | | | | | | | | | | | | | | | | | | | | | | | | | | | | | | | | | | | | | | | | | | | | | | | | | | + + + + + + + | | | | | completed | | | | | | | | | | | | | | | | | | | | 0 | | | | | | | | | | | | | | | | | | | | | | | | | metronida | | | | | | | zole 500 | | | | | | | mg tablet | | | | | | | | | | | | | | | | | | | | | | | | | | | | | | | | | | | | | | | | | | | | | | | | | | | | | | | | | | | | | | | | | | | | | | | | | | | | + + + + + + + | | | | | completed | | | | | | | | | | | | | 01/28/ | | | | | | | 0 | | | | | | | | | | | | | | | | | | | | | | | | | oxcarbaze | | | | | | | pine 300 | | | | | | | mg tablet | | | | | | | | | | | | | | | | | | | | | | | | | | | | | | | | | | | | | | | | | | | | | | | | | | | | | | | | | | | | | | | | | | | | | | | | | | | | + + + + + + + | | | | | completed | | | | | | | | | | | | | | | | | | | | 1 | | | | | | | | | | | | | | | | | | | | | | | | | acetamino | | | | | | | phen 300 | | | | | | | mg-codein | | | | | | | e 30 mg | | | | | | | tablet | | | | | | | | | | | | | | | | | | | | | | | | | | | | | | | | | | | | | | | | | | | | | | | | | | | | | | | | | | | | | | | | | | | | | | | | | | | | + + + + + + + | | | | | completed | | | | | | | | | | | | | | | | | | | | 0 | | | | | Take | | | | | | | 1 tablet | | | | | | | every 12 | | | | | | sulfameth | hours by | | | | | | oxazole | oral | | | | | | 800 | route. | | | | | | mg-trimet | | | | | | | hoprim | | | | | | | 160 mg | | | | | | | tablet | | | | | | | | | | | | | | | | | | | | | | | | | | | | | | | | | | | | | | | | | | | | | | | | | | | | | | | | | | | | | | | | | | | | | | | | | | | | + + + + + + + | | | | | active | | | | | | | | | | | | 01/21/202 | | | | | | | 1 | | | | | | TAKE | | | | | | | 1 TABLET | | | | | | | BY MOUTH | | | | | | hydrocodo | EVERY 6 | | | | | | ne 10 | HOURS | | | | | | mg-acetam | NEEDED | | | | | | inophen | | | | | | | 325 mg | | | | | | | tablet | | | | | | | | | | | | | | | | | | | | | | | | | | | | | | | | | | | | | | | | | | | | | | | | | | | | | | | | | | | | | | | | | | | | | | | | | | | | + + + + + + + | | | | | active | | | | | | | | | | | | | | | | | | | | | | | | | | | | | | | | | | | | | | | | | | | | | omeprazol | | | | | | | e 40 mg | | | | | | | capsule,d | | | | | | | elayed | | | | | | | release | | | | | | | | | | | | | | | | | | | | | | | | | | | | | | | | | | | | | | | | | | | | | | | | | | | | | | | | | | | | | | | | | | | | | | | | | | | | + + + + + + + | | | | | completed | | | | | | | | | | | | | | | | | | | | 0 | | | | | TK | | | | | | | ONE T PO | | | | | | | Q 6 H PRN | | | | | | tramadol | FOR 5 | | | | | | 50 mg | DAYS | | | | | | tablet | | | | | | | | | | | | | | | | | | | | | | | | | | | | | | | | | | | | | | | | | | | | | | | | | | | | | | | | | | | | | | | | | | | | | | | | | | | | + + + + + + + | | | | | completed | | | | | | | | | | | | | | | | | | | | 0 | | | | | | | | | | | | | | | | | | | | | | | | | amoxicill | | | | | | | in 500 mg | | | | | | | tablet | | | | | | | | | | | | | | | | | | | | | | | | | | | | | | | | | | | | | | | | | | | | | | | | | | | | | | | | | | | | | | | | | | | | | | | | | | | | + + + + + + + | | | | | completed | | | | | | | | | | | | | //202 | | | | | | | 0 | | | | | | | | | | | | | | | | | | | | | | | | | ondansetr | | | | | | | on 8 mg | | | | | | | disintegr | | | | | | | ating | | | | | | | tablet | | | | | | | | | | | | | | | | | | | | | | | | | | | | | | | | | | | | | | | | | | | | | | | | | | | | | | | | | | | | | | | | | | | | | | | | | | | | + + + + + + + | | | | | completed | | | | | | | | | | | | | //202 | | | | | | | 0 | | | | | | | | | | | | | | | | | | | | | | | | | risperido | | | | | | | ne 2 mg | | | | | | | tablet | | | | | | | | | | | | | | | | | | | | | | | | | | | | | | | | | | | | | | | | | | | | | | | | | | | | | | | | | | | | | | | | | | | | | | | | | | | | + + + + + + + | | | | | completed | | | | | | | | | | | | | | | | | | | 0 | 1 | | | | | Take | | | | | | | 1 tablet | | | | | | | twice a | | | | | | erythromy | day by | | | | | | edwin 250 | oral | | | | | | mg tablet | route. | | | | | | | | | | | | | | | | | | | | | | | | | | | | | | | | | | | | | | | | | | | | | | | | | | | | | | | | | | | | | | | | | | | | | | | | | | | + + + + + + + | | | | | completed | | | | | | | | | | | | | | | | | | | | 0 | | | | | | | | | | | | | | | | | | | | | | | | | propranol | | | | | | | ol 10 mg | | | | | | | tablet | | | | | | | | | | | | | | | | | | | | | | | | | | | | | | | | | | | | | | | | | | | | | | | | | | | | | | | | | | | | | | | | | | | | | | | | | | | | + + + + + + + | | | | | completed | | | | | | | | | | | | | 03/06/202 | | | | | | | 0 | | | | | TK | | | | | | | ONE T PO | | | | | | | Q 12 H | | | | | | amoxicill | TAT | | | | | | in 875 mg | | | | | | | tablet | | | | | | | | | | | | | | | | | | | | | | | | | | | | | | | | | | | | | | | | | | | | | | | | | | | | | | | | | | | | | | | | | | | | | | | | | | | | + + + + + + + | | | | | active | | | | | | | | | | | | | | | | | | | | | | | | | TAKE | | | | | | | 1 TABLET | | | | | | | BY MOUTH | | | | | | oxycodone | EVERY 6 | | | | | | -acetamin | HOURS | | | | | | ophen 10 | NEEDED | | | | | | mg-325 mg | FOR 14 | | | | | | tablet | DAYS | | | | | | | | | | | | | | | | | | | | | | | | | | | | | | | | | | | | | | | | | | | | | | | | | | | | | | | | | | | | | | | | | | | | | | | | | | | + + + + + + + | | | | | completed | | | | | | | | | | | | | //202 | | | | | | | 0 | | | | | | | | | | | | | | | | | | | | | | | | | trazodone | | | | | | | 100 mg | | | | | | | tablet | | | | | | | | | | | | | | | | | | | | | | | | | | | | | | | | | | | | | | | | | | | | | | | | | | | | | | | | | | | | | | | | | | | | | | | | | | | | + + + + + + + | | | | | active | | | | | | | | | | | | | | | | | | | | | | | | | | | | | | | | | | | | | | | | | | | | | diazepam | | | | | | | 2 mg | | | | | | | tablet | | | | | | | | | | | | | | | | | | | | | | | | | | | | | | | | | | | | | | | | | | | | | | | | | | | | | | | | | | | | | | | | | | | | | | | | | | | | + + + + + + + | | | | | completed | | | | | | | | | | | | | | | | | | | | 0 | | | | | TK 1 | | | | | | | C PO TID | | | | | | | | | | | | | benzonata | | | | | | | te 100 mg | | | | | | | capsule | | | | | | | | | | | | | | | | | | | | | | | | | | | | | | | | | | | | | | | | | | | | | | | | | | | | | | | | | | | | | | | | | | | | | | | | | | | | + + + + + + + | | | | | completed | | | | | | | | | | | | | | | | | | | | 0 | | | | | | | | | | | | | | | | | | | | | | | | | doxycycli | | | | | | | ne | | | | | | | monohydra | | | | | | | te 100 mg | | | | | | | capsule | | | | | | | | | | | | | | | | | | | | | | | | | | | | | | | | | | | | | | | | | | | | | | | | | | | | | | | | | | | | | | | | | | | | | | | | | | | | + + + + + + + | | | | | completed | | | | | | | | | | | | | | | | | | | | 0 | | | | | | | | | | | | | | | | | | | | | | | | | hydrocodo | | | | | | | ne 7.5 | | | | | | | mg-acetam | | | | | | | inophen | | | | | | | 325 mg | | | | | | | tablet | | | | | | | | | | | | | | | | | | | | | | | | | | | | | | | | | | | | | | | | | | | | | | | | | | | | | | | | | | | | | | | | | | | | | | | | | | | | + + + + + + + | | | | | completed | | | | | | | | | | | | | | | | | | | | 1 | | | | | TAKE | | | | | | | ONE | | | | | | | CAPSULE | | | | | | cephalexi | BY MOUTH | | | | | | n 500 mg | EVERY 12 | | | | | | capsule | HOURS | | | | | | | UNTIL | | | | | | | GONE | | | | | | | | | | | | | | | | | | | | | | | | | | | | | | | | | | | | | | | | | | | | | | | | | | | | | | | | | | | | | + + + + + + + | | | | | completed | | | | | | | | | | | | | 03/06/202 | | | | | | | 0 | | | | | | | | | | | | | | | | | | | | | | | | | pantopraz | | | | | | | ole 40 mg | | | | | | | | | | | | | | tablet,de | | | | | | | layed | | | | | | | release | | | | | | | | | | | | | | | | | | | | | | | | | | | | | | | | | | | | | | | | | | | | | | | | | | | | | | | | | | | | | | | | | | | | | | | | | | | | + + + + + + + | | | | | completed | | | | | | | | | | | | | //201 | | | | | | | 9 | | | | | | | | | | | | | | | | | | | | | | | | | acyclovir | | | | | | | 5 % | | | | | | | topical | | | | | | | ointment | | | | | | | | | | | | | | | | | | | | | | | | | | | | | | | | | | | | | | | | | | | | | | | | | | | | | | | | | | | | | | | | | | | | | | | | | | | | + + + + + + + | | | | | completed | | | | | | | | | | | | | /08/202 | | | | | | | 1 | | | | | | | | | | | | | | | | | | | | | | | | | lansopraz | | | | | | | ole 30 mg | | | | | | | | | | | | | | capsule,d | | | | | | | elayed | | | | | | | release | | | | | | | | | | | | | | | | | | | | | | | | | | | | | | | | | | | | | | | | | | | | | | | | | | | | | | | | | | | | | | | | | | | | | | | | | | | | + + + + + + + | | | | | completed | | | | | | | | | | | | | //202 | | | | | | | 0 | | | | | | | | | | | | | | | | | | | | | | | | | divalproe | | | | | | | x ER 500 | | | | | | | mg | | | | | | | tablet,ex | | | | | | | tended | | | | | | | release | | | | | | | 24 hr | | | | | | | | | | | | | | | | | | | | | | | | | | | | | | | | | | | | | | | | | | | | | | | | | | | | | | | | | | | | | | | | | | | | | | | | | | | | + + + + + + + | | | | | active | | | | | | | | | | | | | | | | | | | | | | | | | TAKE | | | | | | | ONE | | | | | | | TABLET | | | | | | promethaz | EVERY | | | | | | ine 25 mg | FOUR | | | | | | tablet | HOURS | | | | | | | NEEDED | | | | | | | | | | | | | | | | | | | | | | | | | | | | | | | | | | | | | | | | | | | | | | | | | | | | | | | | | | | | | | | | | | | | + + + + + + + | | | | | completed | | | | | | | | | | | | | 03/06/202 | | | | | | | 0 | | | | | | | | | | | | | | | | | | | | | | | | | nitroglyc | | | | | | | blaze 0.4 | | | | | | | mg | | | | | | | sublingua | | | | | | | l tablet | | | | | | | | | | | | | | | | | | | | | | | | | | | | | | | | | | | | | | | | | | | | | | | | | | | | | | | | | | | | | | | | | | | | | | | | | | | | + + + + + + + | | | | | completed | | | | | | | | | | | | | 03/05/202 | | | | | | | 0 | | | | | | | | | | | | | | | | | | | | | | | | | omeprazol | | | | | | | e 20 mg | | | | | | | capsule,d | | | | | | | elayed | | | | | | | release | | | | | | | | | | | | | | | | | | | | | | | | | | | | | | | | | | | | | | | | | | | | | | | | | | | | | | | | | | | | | | | | | | | | | | | | | | | | + + + + + + + | | | | | active | | | | | | | | | | | | | | | | | | | | | | | | | | | | | | | | | | | | | | | | | | | | | diclofena | | | | | | | c sodium | | | | | | | 75 mg | | | | | | | tablet,de | | | | | | | layed | | | | | | | release | | | | | | | | | | | | | | | | | | | | | | | | | | | | | | | | | | | | | | | | | | | | | | | | | | | | | | | | | | | | | | | | | | | | | | | | | | | | + + + + + + + | | | | | completed | | | | | | | | | | | | | | | | | | | | 0 | | | | | | | | | | | | | | | | | | | | | | | | | hydroxyzi | | | | | | | ne HCl 25 | | | | | | | mg | | | | | | | tablet | | | | | | | | | | | | | | | | | | | | | | | | | | | | | | | | | | | | | | | | | | | | | | | | | | | | | | | | | | | | | | | | | | | | | | | | | | | | + + + + + + + | | | | | completed | | | | | | | | | | | | | | | | | | | | 0 | | | | | | | | | | | | | | | | | | | | | | | | | diclofena | | | | | | | c sodium | | | | | | | 50 mg | | | | | | | tablet,de | | | | | | | layed | | | | | | | release | | | | | | | | | | | | | | | | | | | | | | | | | | | | | | | | | | | | | | | | | | | | | | | | | | | | | | | | | | | | | | | | | | | | | | | | | | | | + + + + + + + | | | | | completed | | | | | | | | | | | | | | | | | | | | 0 | | | | | | | | | | | | | | | | | | | | | | | | | diazepam | | | | | | | 10 mg | | | | | | | tablet | | | | | | | | | | | | | | | | | | | | | | | | | | | | | | | | | | | | | | | | | | | | | | | | | | | | | | | | | | | | | | | | | | | | | | | | | | | | + + + + + + + | | | | | completed | | | | | | | | | | | | | | | | | | | | 9 | | | | | | | | | | | | | | | | | | | | | | | | | ibuprofen | | | | | | | 600 mg | | | | | | | tablet | | | | | | | | | | | | | | | | | | | | | | | | | | | | | | | | | | | | | | | | | | | | | | | | | | | | | | | | | | | | | | | | | | | | | | | | | | | | + + + + + + + | | | | | completed | | | | | | | | | | | | | | | | | | | | 0 | | | | | FPD | | | | | | | | | | | | | | | | | | | | methylpre | | | | | | | dnisolone | | | | | | | 4 mg | | | | | | | tablets | | | | | | | in a dose | | | | | | | pack | | | | | | | | | | | | | | | | | | | | | | | | | | | | | | | | | | | | | | | | | | | | | | | | | | | | | | | | | | | | | | | | | | | | | | | | | | | | + + + + + + + | | | | | active | | | | | | | | | | | | | | | | | | | | | | | | | | | | | | | | INHALE 2 | | | | | | | PUFFS BY | | | | | | albuterol | MOUTH | | | | | | sulfate | EVERY 4 | | | | | | HFA 90 | HOURS | | | | | | mcg/actua | NEEDED | | | | | | tion | | | | | | | aerosol | | | | | | | inhaler | | | | | | | | | | | | | | | | | | | | | | | | | | | | | | | | | | | | | | | | | | | | | | | | | | | | | | | | | | | | | | | | | | | | | | | | | | | | + + + + + + + | | | | | completed | | | | | | | | | | | | | // | | | | | | | 1 | | | | | | | | | | | | | | | | | | | | | | | | | ondansetr | | | | | | | on 4 mg | | | | | | | disintegr | | | | | | | ating | | | | | | | tablet | | | | | | | | | | | | | | | | | | | | | | | | | | | | | | | | | | | | | | | | | | | | | | | | | | | | | | | | | | | | | | | | | | | | | | | | | | | | + + + + + + + | | | | | completed | | | | | | | | | | | | | | | | | | | | 0 | | | | | | | | | | | | | | | | | | | | | | | | | diltiazem | | | | | | | 60 mg | | | | | | | tablet | | | | | | | | | | | | | | | | | | | | | | | | | | | | | | | | | | | | | | | | | | | | | | | | | | | | | | | | | | | | | | | | | | | | | | | | | | | | + + + + + + + | | | | | completed | | | | | | | | | | | | | | | | | | | | 1 | | | | | | | | | | | | | | | | | | | | | | | | | dicyclomi | | | | | | | ne 10 mg | | | | | | | capsule | | | | | | | | | | | | | | | | | | | | | | | | | | | | | | | | | | | | | | | | | | | | | | | | | | | | | | | | | | | | | | | | | | | | | | | | | | | | + + + + + + + | | | | | completed | | | | | | | | | | | | | 03/06/202 | | | | | | | 0 | | | | | | | | | | | | | | | | | | | | | | | | | diazepam | | | | | | | 5 mg | | | | | | | tablet | | | | | | | | | | | | | | | | | | | | | | | | | | | | | | | | | | | | | | | | | | | | | | | | | | | | | | | | | | | | | | | | | | | | | | | | | | | | + + + + + + + | | | | | completed | | | | | | | | | | | | | 01/08/202 | | | | | | | 1 | | | | | | | | | | | | | | | | | | | | | | | | | metoclopr | | | | | | | amide 10 | | | | | | | mg tablet | | | | | | | | | | | | | | | | | | | | | | | | | | | | | | | | | | | | | | | | | | | | | | | | | | | | | | | | | | | | | | | | | | | | | | | | | | | | + + + + + + + | | | | | completed | | | | | | | | | | | | | 08/10/202 | | | | | | | 0 | | | | | | | | | | | | | | | | | | | | | | | | | amoxicill | | | | | | | in 875 | | | | | | | mg-potass | | | | | | | ium | | | | | | | clavulana | | | | | | | te 125 mg | | | | | | | tablet | | | | | | | | | | | | | | | | | | | | | | | | | | | | | | | | | | | | | | | | | | | | | | | | | | | | | | | | | | | | | | | | | | | | | | | | | | | | + + + + + + + | | | | | completed | | | | | | | | | | | | | 03/05/202 | | | | | | | 0 | | | | | | | | | | | | | | | | | | | | | | | | | clindamyc | | | | | | | in | | | | | | | phosphate | | | | | | | 1 % | | | | | | | topical | | | | | | | solution | | | | | | | | | | | | | | | | | | | | | | | | | | | | | | | | | | | | | | | | | | | | | | | | | | | | | | | | | | | | | | | | | | | | | | | | | | | | + + + + + + + | | | | | completed | | | | | | | | | | | | | 03/06/202 | | | | | | | 0 | | | | | | | | | | | | | | | | | | | | | | | | | azithromy | | | | | | | edwin 500 | | | | | | | mg tablet | | | | | | | | | | | | | | | | | | | | | | | | | | | | | | | | | | | | | | | | | | | | | | | | | | | | | | | | | | | | | | | | | | | | | | | | | | | | + + + + + + + | | | | | completed | | | | | | | | | | | | | 10/31/201 | | | | | | | 9 | | | | | | | | | | | | | | | | | | | | | | | | | Zojoseax 5 | | | | | | | % | | | | | | | topical | | | | | | | cream | | | | | | | | | | | | | | | | | | | | | | | | | | | | | | | | | | | | | | | | | | | | | | | | | | | | | | | | | | | | | | | | | | | | | | | | | | | | + + + + + + + | | | | | completed | | | | | | | | | | | | | 03//202 | | | | | | | 0 | | | | | | | | | | | | | | | | | | | | | | | | | duloxetin | | | | | | | e 30 mg | | | | | | | capsule,d | | | | | | | elayed | | | | | | | release | | | | | | | | | | | | | | | | | | | | | | | | | | | | | | | | | | | | | | | | | | | | | | | | | | | | | | | | | | | | | | | | | | | | | | | | | | | | + + + + + + + | | | | | completed | | | | | | | | | | | | 12/22/201 | 10//201 | | | | | | 6 | 9 | | | | | Take | | | | | | | 1 capsule | | | | | | | twice a | | | | | | tizanidin | day by | | | | | | e 4 mg | oral | | | | | | capsule | route. | | | | | | | | | | | | | | | | | | | | | | | | | | | | | | | | | | | | | | | | | | | | | | | | | | | | | | | | | | | | | | | | | | | | | | | | | | | + + + + + + + | | | | | completed | | | | | | | | | | | | | | | | | | | | 0 | | | | | 25 mg | | | | | | | as | | | | | | | needed | | | | | | Phenergan | | | | | | | | | | | | | | | | | | | | | | | | | | | | | | | | | | | | | | | | | | | | | | | | | | | | | | | | | | | | | | | | | | | | | | | | | | | | + + + + + + + | | | | | completed | | | | | | | | | | | | | | | | | | | | 0 | | | | | | | | | | | | | | | | | | | | | | | | | atomoxeti | | | | | | | ne 80 mg | | | | | | | capsule | | | | | | | | | | | | | | | | | | | | | | | | | | | | | | | | | | | | | | | | | | | | | | | | | | | | | | | | | | | | | | | | | | | | | | | | | | | | + + + + + + + | | | | | completed | | | | | | | | | | | | | | | | | | | | 0 | | | | | | | | | | | | | | | | | | | | | | | | | atomoxeti | | | | | | | ne 100 mg | | | | | | | capsule | | | | | | | | | | | | | | | | | | | | | | | | | | | | | | | | | | | | | | | | | | | | | | | | | | | | | | | | | | | | | | | | | | | | | | | | | | | | + + + + + + + | | | | | completed | | | | | | | | | | | | | | | | | | | | 1 | | | | | | | | | | | | | | | | | | | | | | | | | olopatadi | | | | | | | ne 0.2 % | | | | | | | eye drops | | | | | | | | | | | | | | | | | | | | | | | | | | | | | | | | | | | | | | | | | | | | | | | | | | | | | | | | | | | | | | | | | | | | | | | | | | | | + + + + + + + | | | | | completed | | | | | | | | | | | | | | | | | | | | 0 | | | | | | | | | | | | | | | | | | | | | | | | | Cholestyr | | | | | | | amine | | | | | | | Light 4 | | | | | | | gram oral | | | | | | | powder | | | | | | | | | | | | | | | | | | | | | | | | | | | | | | | | | | | | | | | | | | | | | | | | | | | | | | | | | | | | | | | | | | | | | | | | | | | | + + + + + + + | | | | | completed | | | | | | | | | | | | | //201 | | | | | | | 9 | | | | | | | | | | | | | | | | | | | | | | | | | levocetir | | | | | | | izine 5 | | | | | | | mg tablet | | | | | | | | | | | | | | | | | | | | | | | | | | | | | | | | | | | | | | | | | | | | | | | | | | | | | | | | | | | | | | | | | | | | | | | | | | | | + + + + + + + | | | | | completed | | | | | | | | | | | | | 03/05/202 | | | | | | | 0 | | | | | | | | | | | | | | | | | | | | | | | | | Dexilant | | | | | | | 60 mg | | | | | | | capsule, | | | | | | | delayed | | | | | | | release | | | | | | | | | | | | | | | | | | | | | | | | | | | | | | | | | | | | | | | | | | | | | | | | | | | | | | | | | | | | | | | | | | | | | | | | | | | | + + + + + + + History of Present Illness None recorded. Physical Exam + + + | | | | | | | | | | | | + + + | | None recorded. | | Notes: | | | | | | | | + + + Review of Systems None recorded. Vitals None Recorded Social History + + + | | Former Smoker (Formerly) | | Smoking Status | | | | | | | | + + + | Sex | Female | | | | + + + Functional Status + + + | | Yes | | Able to Care for Self | | | | | | | | + + + Mental Status None recorded. Family History + + + + + + + | Relations | Descripti | Onset Age | of | Resolved | Notes | | hip | on | | this Age | Age | | | | | | | | | | | | | | | | | | | | | | | | | | | | | | + + + + + + + | Father | No | | | | | | | current | | | | | | | problems | | | | | | | or | | | | | | | disabilit | | | | | | | y | | | | | | | | | | | | | | | | | | | | | | | | | | | | | | | | | + + + + + + + | Mother | No | | | | | | | current | | | | | | | problems | | | | | | | or | | | | | | | disabilit | | | | | | | y | | | | | | | | | | | | | | | | | | | | | | | | | | | | | | | | | + + + + + + + Medical History + + + | Condition | Response | | | | + + + | Migraines | N | | | | + + + | Multiple Sclerosis | N | | | | + + + | Bleeding Disorder | N | | | | + + + | 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 | | | | + + + | 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 | | | | + + + | Swelling in legs/feet | N | | | | + + + | Angina | N | | | | + + + | Hernia | N | | | | + + + | Breast Cancer | N | | | | + + + | Urinary Tract Infection | N | | | | + + + | Tuberculosis | N | | | | + + + | Anxiety Disorder | N | | | | + + + | Bloating | N | | | | + + + | Deep Vein Thrombosis | N | | | | + + + | Leg cramps | N | | | | + + + | Back Pain | N | | | | + + + | Asthma | N | | | | + + + | Alcoholism | N | | | | + + + | Circulation Problems | N | | | | + + + | Leg pain | N | | | | + + + | Diabetes | N | | | | + + + | RSV | N | | | | + + + | Insomnia | N | | | | + + + | Blurred Vision | N | | | | + + + | Colon Polyps | N | | | | + + + | Pulmonary Embolism | N | | | | + + + | Cancer | N | | | | + + + | Sore muscles / joints | N | | | | + + + | Thyroid Problems | N | | | | + + + | Heart Murmur | N | | | | + + + | Good Pastures | N | | | | + + + | Heart Attack ([place]) | N | | | | + + + | Shortness of Breath | N | | | | + + + | Hepatitis | N | | | | + + + | Heart Disease | N | | | | + + + | Glaucoma | N | | | | + + + | Pancreatitis | N | | | | + + + | Blood in Urine | N | | | | + + + | Hip pain when walking | N | | | | + + + | Recent Weight Change | N | | | | + + + | Cold feet and legs | N | | | | + + + | Sores on legs | N | | | | + + + | Wheezing | N | | | | + + + | Warfarin Management | N | | | | + + + | Fatigue | N | | | | + + + | High Blood Pressure | N | | | | + + + | Dialysis | N | | | | + + + | Rheumatoid Arthritis | N | | | | + + + | Numbness | N | | | | + + + | Sleep Apnea (CPAP/BPAP/O2) | N | | | | + + + | Gallbladder disease | N | | | | + + + | Kidney Failure | N | | | | + + + | STOMACH OR GI ULCERS | N | | | | + + + | Fever | N | | | | + + + | Spitting up Blood | N | | | | + + + | Diarrhea | N | | | | + + + | COPD | N | | | | + + + | Upper Back Pain | N | | | | + + + | Hearing Loss | N | | | | + + + | Diverticulitis | N | | | | + + + | Blood Clots | N | | | | + + + | Abdominal Pain | N | | | | + + + | Leg or Foot Ulcers | N | | | | + + + | Memory Loss or Confusion | N | | | | + + + | Chronic or frequent cough | N | | | | + + + | Bleeding or Bruising tendency | N | | | | + + + | Enlarged Glands | N | | | | + + + | Excessive Thirst or Urination | N | | | | + + + | Heart Rhythm Disorder | N | | | | + + + | Hiatal Hernia | N | | | | + + + | Mitral Valve Prolapse | N | | | | + + + | Arthritis | N | | | | + + + | Elevated Cholesterol | N | | | | + + + | Gout | N | | | | + + + | Joint Pain or Swelling | N | | | | + + + | Phlebitis | N | | | | + + + | Sexually Transmitted Disease | N | | | | + + + | Pacemaker | N | | | | + + + | Blood Transfusions | N | | | | + + + | Angioplasty (balloon) | N | | | | + + + | Crohns Disease | N | | | | + + + | Heat or cold intolerance | N | | | | + + + | Muscular Dystrophy | N | | | | + + + | Belching | N | | | | + + + | Seizures/Epilepsy | N | | | | + + + | Substance Abuse | N | | | | + + + | HIV or AIDS | N | | | | + + + | Kidney Stones | N | | | | + + + | Gastric Reflux | N | | | | + + + | Recent Change in Bowel Habits | N | | | | + + + | Breast Pain | N | | | | + + + | Stroke | N | | | | + + + | Constipation | N | | | | + + + | Swelling of Ankles, Feet or Hands | N | | | | | | | + + + | Peptic Ulcer (stomach or duodenal) | N | | | | | | | + + + | Regurgitation | N | | | | + + + | Headache | N | | | | + + + | Coronary Artery Disease | N | | | | + + + | Difficulty Walking | N | | | | + + + | Yellow Jaundice | N | | | | + + + | Ulcerative Colitis | N | | | | + + + | Muscle Pain | N | | | | + + + | Rectal Bleeding | N | | | | + + + | GERD | N | | | | + + + | Complication To Anesthesia | N | | | | + + + | Breast Lump | N | | | | + + + | Lung Disease | N | | | | + + + | Mental Disorders | N | | | | + + + | Gastrointestinal Disease | N | | | | + + + | Depression | N | | | | + + + | Shoulder Pain | N | | | | + + + | Difficulty Swallowing | N | | | | + + + | Rheumatic Fever | N | | | | + + + | Black, Tarry Stools | N | | | | + + + | Frequent Urination | N | | | | + + + | Fibromyalgia | N | | | | + + + | Discolored feet and legs | N | | | | + + + | Arm Pain | N | | | | + + + | Aortic Aneurysm | N | | | | + + + | Chest Pain | N | | | | + + + | Emphysema | N | | | | + + + | Anemia | N | | | | + + + | Addiction | N | | | | + + + | Hypertension | N | | | | + + + | Mouth Sores | N | | | | + + + | Kidney Disease | N | | | | + + + | Palpitation | N | | | | + + + | High Cholesterol | N | | | | + + + | Burning with Urination | N | | | | + + + | Nausea or Vomiting | N | | | | + + + | Ringing in Ears | N | | | | + + + | Osteoporosis | N | | | | + + + | Poor Appetite | N | | | | + + + | Loss of Appetite | N | | | | + + + | Reflux | Y | | | | + + + | Varicose Veins | N | | | | + + + | Liver Disease | N | | | | + + + | Peripheral Arterial Disease | N | | | | + + + | Itching | N | | | | + + + | Gallstones | N | | | | + + + | Peripheral Vascular Disease (PVD) | N | | | | | | | + + + | Abnormal Mammogram | N | | | | + + + | Heart Problems | N | | | | + + + | Heartburn | N | | | | + + + Gynecological History No gynecological history recorded. Obstetrics History GPAL: G 0 P 0 0 0 0 Immunizations None recorded. Past Encounters None Reported. Goals Section + + + + + + + | Goal | Descripti | Status | Start | Updated | Updated | | | on | | Date | by | on | | | | | | | | | | | | | | | | | | | | | | | | | | | | | + + + + + + + + + | None Recorded | + + Health Concerns Section + + | Related Observation | + + | None Recorded | + + + + + + + | Concern | Status | Updated by | Updated on | | | | | | | | | | | | | | | | + + + + + | None Recorded | | | | | | | | | | | | | | | | | | | + + + + +"
--- NOTE | 2021-01-27 09:00 | NUR ---
ALERT AND ORIENTED X4. ABDOMEN SOFT WITH BOWEL SOUNDS NOTED X4. STERISTRIPS INTACT TO ABDOMEN. JERSON DRAIN INTACT TO LUQ WITH SEROUS DRAINAGE NOTED. IV TO LEFT THUMB WITH NO S/S OF INFECTION/INFILTRATION. ENCOURAGED TO USE CALL LIGHT FOR ASSIST.
[2021-01-27] MEDS ORDERED: REGLAN10 MG PO (11:22)
[2021-01-27 11:29] VITALS: BP 97/58
--- NOTE | 2021-01-27 14:14 | MORECARE ---
CASE MANAGEMENT DISCHARGE SUMMARY PATIENT: LOLA HASSAN BRUNILDA UNIT: [id number] ADM DATE: 01/22/21 AGE: 45 : 71 SEX: F ROOM/BED: D.2201 AUTHOR: AMBAR YOO PHYSICIAN: REFERRING PHYSICIAN: AASHISH PATEL MD DATE OF SERVICE: 01/27/21 Discharge Plan Patient Name: LOLA HASSAN [facility] [facility] 1975 Planned Disposition: Home or Self Care Anticipated Discharge Date: Discharge Date: Expected LOS: Initial Reviewer: [email or web address] Initial Review Date: 01/22/2021 Generated: 01/27/21 3:13 pm Coverage Notice Reviewer: [id number] - Fozia Crawford Notice Issued Date-Time: 01/27/2021 14:10 Notice Type: IM Discharge Notice Notice Delivered To: Patient Relationship to Patient: Medical Center Manager Name: Delivery Method: HAND - Hand Delivered Mine Days: Prior Verbal Notification: Recipient Understood Notice: Yes Recipient Signature: Yes Med Rec Note Co-signed by Attending: Coverage Notice Comment: Patient Name: LOLA HASSAN Page [id number] at 1414 All edits/amendments must be made on the electronic document DICTATION DATE: 01/27/211413 GAMING CASHIER: KORTNEY 01/27/21 141 RPT#: [id number] DC DATE: STATUS: ADM IN [facility] [address] [place] [address] END OF REPORT
--- NOTE | 2021-01-27 14:22 | MORECARE ---
CASE MANAGEMENT DISCHARGE SUMMARY PATIENT: LOLA HASSAN BRUNILDA UNIT: [id number] ADM DATE: 01/22/21 AGE: 45 : 71 SEX: F ROOM/BED: D.2201 AUTHOR: AMBAR YOO PHYSICIAN: REFERRING PHYSICIAN: AASHISH PATEL MD DATE OF SERVICE: 01/27/21 Discharge Plan Patient Name: LOLA HASSAN Facility: [facility]:[place] : 1975 Planned Disposition: Home or Self Care Anticipated Discharge Date: Discharge Date: Expected LOS: Initial Reviewer: [email or web address] Initial Review Date: 01/22/2021 Generated: 01/27/21 3:21 pm Comments DCP- Discharge Planning Updated by [email or web address]: Fozia Crawford on 01/27/21 1:[address] Patient Name: LOLA HASSAN Admission Status: ER Accout number: [id number] Admission Date: 01-22-2021 : 1975 Admission Diagnosis:CHRONIC OR UNSPECIFIED GASTRIC ULCER WITH PERFORATION Attending: AASHISH PATEL Current LOS: 5 Anticipated DC Date: Planned Disposition: Home or Self Care Primary Insurance: [employer] ADV Discharge Planning Comments: CM met with patient to complete initial dc planning assessment. CM educated patient on the CM role and verbal consent given by patient to complete assessment. Patient lives at home with his spouse where he is independent with her care. At discharge patient plans to return home and feels this is a safe discharge. CM discussed availability of home health, rehab services, and medical equipment. She has a walker at home but does not use or need it. She denies any needs. [facility] [place] served and explained. Patient denied known discharge needs at this time. CM will continue to follow and will assist as needed with dc plans/needs Radio Broadcaster: Fozia Crawford DCPIA - Discharge Planning Initial Assessment Updated by [email or web address]: Fozia Crawford on 01/27/21 2:15 pm * Is the patient Alert and Oriented? Yes * How many steps to enter\exit or inside your home? RAMP * PCP [facility] * Pharmacy [facility] * Preadmission Environment Home with Family * ADLs Independent * Equipment Walker * List name and contact numbers for known caregivers / representatives who currently or will assist patient after discharge: NINI ( SPOUSE) [phone] * Verbal permission to speak to the caregivers and representatives has been obtained from the patient. N/A * Community resources currently utilized None * Additional services required to return to the preadmission environment? No * Can the patient safely return to the preadmission environment? Yes * Has this patient been hospitalized within the prior 30 days at any hospital? Yes Coverage Notice Reviewer: [email or web address] Mike Crawford Notice Issued Date-Time: 01/27/2021 14:10 Notice Type: IM Discharge Notice Notice Delivered To: Patient Relationship to Patient: Admitting Interviewer Name: Delivery Method: HAND - Hand Delivered Mine Days: Prior Verbal Notification: Recipient Understood Notice: Yes Recipient Signature: Yes Med Rec Note Co-signed by Attending: Coverage Notice Comment: Last DP export: 01/27/21 1:14 pm Patient Name: LOLA HASSAN Page [id number] at 1422 All edits/amendments must be made on the electronic document DICTATION DATE: 01/27/21 142 QUALITY CHECKER: KORTNEY 01/27/21 142 RPT#: [id number] DC DATE: STATUS: ADM IN [facility] [address] [place] [address] END OF REPORT
--- NOTE | 2021-01-27 14:50 | NUR ---
JERSON DRAIN AND IV DISCONTINUED AND VERBALZIED UNDERSTANDING OF DISCHARGE INSTRUCTIONS. STABLE AT TIME OF DISCHARGE.
--- NOTE | 2021-01-30 07:49 | MORECARE ---
CASE MANAGEMENT DISCHARGE SUMMARY PATIENT: LOLA HASSAN BRUNILDA UNIT: [id number] ADM DATE: 01/22/21 AGE: 45 : 71 SEX: F ROOM/BED: D.2201 AUTHOR: NAILADOC PHYSICIAN: REFERRING PHYSICIAN: AASHISH PATEL MD DATE OF SERVICE: 01/30/21 Discharge Plan Patient Name: LOLA HASSAN Facility: [facility]:[place] : 1975 Planned Disposition: Home or Self Care Anticipated Discharge Date: Discharge Date: 01/27/2021 Expected LOS: Initial Reviewer: [email or web address] Initial Review Date: 01/22/2021 Generated: 01/30/21 8:48 am Comments DCP- Discharge Planning Updated by [email or web address]: Fozia Crawford on 01/27/21 1:[address] Patient Name: LOLA HASSAN Admission Status: ER Accout number: [id number] Admission Date: 01-22-2021 : 1975 Admission Diagnosis:CHRONIC OR UNSPECIFIED GASTRIC ULCER WITH PERFORATION Attending: AASHISH PATEL Current LOS: 5 Anticipated DC Date: Planned Disposition: Home or Self Care Primary Insurance: [email or web address] MEDICARE ADV Discharge Planning Comments: CM met with patient to complete initial dc planning assessment. CM educated patient on the CM role and verbal consent given by patient to complete assessment. Patient lives at home with his spouse where he is independent with her care. At discharge patient plans to return home and feels this is a safe discharge. CM discussed availability of home health, rehab services, and medical equipment. She has a walker at home but does not use or need it. She denies any needs. [facility] served and explained. Patient denied known discharge needs at this time. CM will continue to follow and will assist as needed with dc plans/needs Scout Leaser: Fozia Crawford DCPIA - Discharge Planning Initial Assessment Updated by [email or web address]: Fozia Crawford on 01/27/21 2:15 pm * Is the patient Alert and Oriented? Yes * How many steps to enter\exit or inside your home? RAMP * PCP [facility] * Pharmacy [facility] * Preadmission Environment Home with Family * ADLs Independent * Equipment Walker * List name and contact numbers for known caregivers / representatives who currently or will assist patient after discharge: NINI ( SPOUSE) [phone] * Verbal permission to speak to the caregivers and representatives has been obtained from the patient. N/A * Community resources currently utilized None * Additional services required to return to the preadmission environment? No * Can the patient safely return to the preadmission environment? Yes * Has this patient been hospitalized within the prior 30 days at any hospital? Yes Coverage Notice Reviewer: [email or web address] Mike Crawford Notice Issued Date-Time: 01/27/2021 14:10 Notice Type: IM Discharge Notice Notice Delivered To: Patient Relationship to Patient: Electronics Repair Technician Name: Delivery Method: HAND - Hand Delivered Mine Days: Prior Verbal Notification: Recipient Understood Notice: Yes Recipient Signature: Yes Med Rec Note Co-signed by Attending: Coverage Notice Comment: Last DP export: 01/27/21 1:22 pm Patient Name: LOLA HASSAN Page [phone] at 0749 All edits/amendments must be made on the electronic document DICTATION DATE: 01/30/21747 MASTER FIRE CONTROL TECHNICIAN: KORTNEY 01/30/2148 RPT#: [id number] DC DATE:01/27/21 STATUS: DIS IN [facility] [address] [place] [address] END OF REPORT
== END 2021-01-27 14:51 | disposition home or self-care (01) | DRG 356 ==
LOC: D.ER 13:31 → D.EDHOLD 15:11 → D.MS 15:11
PROVIDERS: Family Medicine; Surgery; ADMIT Emergency Medicine; ATTEND Emergency Medicine
PROC: 0DB68ZX Excision of Stomach, Via Natural or Artificial Opening Endoscopic, Diagnostic (ICD-10-PCS; principal; 2021-01-23 12:53)
PROC: 0W9G4ZZ Drainage of Peritoneal Cavity, Percutaneous Endoscopic Approach (ICD-10-PCS; 2021-01-24 10:00)
DX: K25.5 Chronic or unspecified gastric ulcer with perforation (principal); K65.1 Peritoneal abscess; F41.9 Anxiety disorder, unspecified; F43.10 Post-traumatic stress disorder, unspecified; J45.909 Unspecified asthma, uncomplicated; G89.29 Other chronic pain; F32.9 Major depressive disorder, single episode, unspecified; K31.84 Gastroparesis